=== PATIENT | female | born 1960 | race Caucasian/White ===

== ENCOUNTER 2018-04-05 11:56 | Emergency (ER) | payer MEDICAID ==
[~2018-04-05] VITALS: Ht 172.7 cm; Wt 124.5 kg
[~2018-04-05 11:56] MED LIST: ALBU8HFA PO; ASPI325T68 PO; BECL8.7A3; CLOP75TA33 PO; DIPH-423 PO; EPIN0.3A3 IM; HYDR12.5 PO; LEVA15HF4 INH; LISI10TA4 PO; LORA10TA7 PO; LORA1TAB PO; METH4TAB3 PO; OMEP20TA23 PO; PRED2.5T4 PO
[2018-04-05 12:35] LABS: BASOPHILS % (AUTO) 0.3 % (0-1); EOSINOPHILS # (AUTO) 0.3 X10'3 (0-0.9); LYMPHOCYTES % (AUTO) 27.5 % (21-51); MEAN CORPUSCULAR HEMOGLOBIN 28.8 PG (27.0-31.0); MEAN CORPUSCULAR HGB CONC 33.3 % (33.0-36.5); MEAN CORPUSCULAR VOLUME 86.4 FL (78-98); MEAN PLATELET VOLUME 8.8 FL (7.4-10.4); MONOCYTES # (AUTO) 0.5 X10'3 (0-0.9); MONOCYTES % (AUTO) 7.2 % (2-12); NEUTROPHILS # (AUTO) 4.5 X10'3 (1.8-7.7); PLATELET COUNT 200 X10'3 (140-440); RED BLOOD COUNT 4.86 X10'6 (4.20-5.60); RED CELL DISTRIBUTION WIDTH 14.8 % (11.5-14.5); WHITE BLOOD COUNT 7.3 X10'3 (4.5-11.0)
[2018-04-05] MEDS ORDERED: nitroGLYCERIN 0.4mg SUBLingual tab SL PRN (12:40)
[2018-04-05] MEDS ORDERED: metoprolol tartrate 1mg/ml inj IV ONE (12:40)
[2018-04-05] MEDS ORDERED: aspirin 81mg tab.chew PO ONE (12:45)
[2018-04-05] MEDS ORDERED: ALBU8.5H8 IH (12:50)
[2018-04-05 12:52] LABS: ALANINE AMINOTRANSFERASE 44 U/L (12-78); ALBUMIN 3.6 G/DL (3.4-5.0); ALBUMIN/GLOBULIN RATIO 0.9 (1.1-1.5); ALKALINE PHOSPHATASE 105 IU/L (46-116); ANION GAP 10 (8-16); ASPARTATE AMINO TRANSFERASE 29 U/L (10-37); BILIRUBIN,TOTAL 0.2 MG/DL (0.1-1.0); BLOOD UREA NITROGEN 16 MG/DL (7-18); BUN/CREATININE RATIO 15.8 (6.6-38.0); CALCIUM 9.2 MG/DL (8.5-10.1); CHLORIDE 105 MMOL/L (99-107); CREATININE 1.01 MG/DL (0.40-0.90); GLUCOSE 112 MG/DL (70-104); POTASSIUM 3.8 MMOL/L (3.5-5.1); SODIUM 143 MMOL/L (135-145); TOTAL CARBON DIOXIDE 27.8 MMOL/L (24-32); TOTAL PROTEIN 7.7 G/DL (6.4-8.2); eGFR 57 ML/MIN
[2018-04-05] MEDS ORDERED: CETI10TA15 PO (12:52)
[2018-04-05] MEDS ORDERED: ASPI-778 PO (12:54)
[2018-04-05 12:58] LABS: PARTIAL THROMBOPLASTIN TIME 27 SECONDS (22-32); PROTHROMBIN TIME 9.7 SECONDS (9.0-12.0)
[2018-04-05] MEDS ORDERED: NITR0.4T51 SL (14:29)
[2018-04-05] MEDS ORDERED: CLIN150C2 PO (14:29)
[2018-04-05 15:14] VITALS: BP 169/88
== END 2018-04-05 15:15 | disposition home or self-care (01) ==
LOC: ER 11:56
DX: I20.8 Other forms of angina pectoris (principal); I10 Essential (primary) hypertension; K08.89 Other specified disorders of teeth and supporting structures; I25.2 Old myocardial infarction; J44.9 Chronic obstructive pulmonary disease, unspecified; E11.9 Type 2 diabetes mellitus without complications; F12.90 Cannabis use, unspecified, uncomplicated; F15.90 Other stimulant use, unspecified, uncomplicated; Z95.5 Presence of coronary angioplasty implant and graft; Z98.890 Other specified postprocedural states; Z79.899 Other long term (current) drug therapy; Z79.82 Long term (current) use of aspirin; Z88.5 Allergy status to narcotic agent; Z88.1 Allergy status to other antibiotic agents; Z88.0 Allergy status to penicillin; Z91.010 Allergy to peanuts
CPT/HCPCS: 36415; 71045; 80053; 83880; 84484; 85025; 85610; 85730; 93005; 96374; 99284; J3490

== ENCOUNTER 2018-05-08 12:46 | Emergency (ER) | payer MEDICAID ==
[~2018-05-08] VITALS: Ht 172.7 cm; Wt 123.0 kg
[~2018-05-08 12:46] MED LIST changes: +ALBU8.5H8 IH; -ALBU8HFA PO; +ASPI-778 PO; -ASPI325T68 PO; -BECL8.7A3; +CETI10TA15 PO; -CLOP75TA33 PO; -DIPH-423 PO; -EPIN0.3A3 IM; -HYDR12.5 PO; -LEVA15HF4 INH; -LISI10TA4 PO; -LORA1TAB PO; -METH4TAB3 PO; -OMEP20TA23 PO; -PRED2.5T4 PO
[2018-05-08 12:49] VITALS: BP 164/118
[2018-05-08] MEDS ORDERED: PANT-47 PO (14:47)
[2018-05-08] MEDS ORDERED: SUCR1TAB34 PO (14:47)
== END 2018-05-08 15:11 | disposition home or self-care (01) ==
LOC: ER 12:46
DX: K20.9 Esophagitis, unspecified (principal); I10 Essential (primary) hypertension; I25.2 Old myocardial infarction; J44.9 Chronic obstructive pulmonary disease, unspecified; E11.9 Type 2 diabetes mellitus without complications; F12.90 Cannabis use, unspecified, uncomplicated; F15.90 Other stimulant use, unspecified, uncomplicated; Z95.1 Presence of aortocoronary bypass graft; Z88.0 Allergy status to penicillin; Z88.8 Allergy status to other drugs, medicaments and biological substances; Z88.6 Allergy status to analgesic agent; Z88.1 Allergy status to other antibiotic agents; Z91.010 Allergy to peanuts
CPT/HCPCS: 71045; 93005; 99283

== ENCOUNTER 2018-06-27 03:19 | Emergency (ER) | payer MEDICAID ==
[~2018-06-27] VITALS: Ht 167.6 cm; Wt 100.0 kg
[~2018-06-27 03:19] MED LIST changes: +PANT-47 PO; +SUCR1TAB34 PO
[2018-06-27 03:21] VITALS: BP 162/98
[2018-06-27] MEDS ORDERED: proparacaine 0.5% ophthalmic drops 15ml EACHEYE ONE (03:25)
[2018-06-27] MEDS ORDERED: traMADol 50MG tablet PO ONE (03:35)
[2018-06-27] MEDS ORDERED: TRAM50TA2 PO (03:37)
[2018-06-27] MEDS ORDERED: VIG0.5OS LEFTEYE (03:37)
== END 2018-06-27 03:43 | disposition home or self-care (01) ==
LOC: ER 03:20
DX: S05.02XA Injury of conjunctiva and corneal abrasion without foreign body, left eye, initial encounter (principal); I10 Essential (primary) hypertension; I25.2 Old myocardial infarction; J44.9 Chronic obstructive pulmonary disease, unspecified; E11.9 Type 2 diabetes mellitus without complications; F12.90 Cannabis use, unspecified, uncomplicated; F15.90 Other stimulant use, unspecified, uncomplicated; Z98.61 Coronary angioplasty status; Z98.890 Other specified postprocedural states; Z88.5 Allergy status to narcotic agent; Z88.0 Allergy status to penicillin; Z88.1 Allergy status to other antibiotic agents; Z91.010 Allergy to peanuts; Z91.018 Allergy to other foods; Z79.899 Other long term (current) drug therapy; X58.XXXA Exposure to other specified factors, initial encounter; Y93.89 Activity, other specified; Y92.89 Other specified places as the place of occurrence of the external cause; Y99.8 Other external cause status
CPT/HCPCS: 99283

== ENCOUNTER 2018-10-03 01:17 | Emergency (ER) | payer MEDICAID ==
[~2018-10-03] VITALS: Ht 172.7 cm; Wt 125.0 kg
[2018-10-03] MEDS ORDERED: acetaminophen 325mg tablet PO STA (02:26)
[2018-10-03 03:33] LABS: BASOPHILS # (AUTO) 0.1 X10'3 (0-0.2); BASOPHILS % (AUTO) 0.6 % (0-1); EOSINOPHILS # (AUTO) 0.2 X10'3 (0-0.9); EOSINOPHILS % (AUTO) 1.4 % (0-6); HEMATOCRIT 40.1 % (35.0-45.0); HEMOGLOBIN 13.4 g/dl (12.0-16.0); LYMPHOCYTES # (AUTO) 2.1 X10'3 (1.1-4.8); LYMPHOCYTES % (AUTO) 16.2 % (21-51); MEAN CORPUSCULAR HGB CONC 33.5 g/dL (33.0-36.5); MEAN CORPUSCULAR VOLUME 86.5 FL (78-98); MEAN PLATELET VOLUME 8.8 FL (7.4-10.4); MONOCYTES # (AUTO) 0.9 X10'3 (0-0.9); MONOCYTES % (AUTO) 6.7 % (2-12); NEUTROPHILS # (AUTO) 9.9 X10'3 (1.8-7.7); NEUTROPHILS % (AUTO) 75.1 % (42-75); PLATELET COUNT 192 X10'3 (140-440); RED BLOOD COUNT 4.63 X10'6 (4.20-5.60); RED CELL DISTRIBUTION WIDTH 14.8 % (11.5-14.5); WHITE BLOOD COUNT 13.2 X10'3 (4.5-11.0)
[2018-10-03 03:42] LABS: ALANINE AMINOTRANSFERASE 37 U/L (12-78); ALBUMIN 3.4 G/DL (3.4-5.0); ALBUMIN/GLOBULIN RATIO 0.8 (1.1-1.5); ALKALINE PHOSPHATASE 109 IU/L (46-116); ANION GAP 11 (8-16); ASPARTATE AMINO TRANSFERASE 23 U/L (10-37); BILIRUBIN,TOTAL 0.5 MG/DL (0.1-1.0); BLOOD UREA NITROGEN 18 MG/DL (7-18); BUN/CREATININE RATIO 19.8 (6.6-38.0); CALCIUM 8.5 MG/DL (8.5-10.1); CHLORIDE 101 MMOL/L (99-107); CREATININE 0.91 MG/DL (0.40-0.90); GLUCOSE 125 MG/DL (70-104); PARTIAL THROMBOPLASTIN TIME 29 SECONDS (22-32); SODIUM 134 MMOL/L (135-145); TOTAL CARBON DIOXIDE 22.4 MMOL/L (24-32); TOTAL PROTEIN 7.7 G/DL (6.4-8.2); eGFR 64 ML/MIN
[2018-10-03] MEDS ORDERED: normal saline 1000ML IV soln IVB ONE ×2 (03:55)
[2018-10-03] MEDS ORDERED: azithromycin/NS 500mg/250ml 250 ML IV ONE (06:10)
[2018-10-03] MEDS ORDERED: CefTRIAXone/D5W-Rocephin 1gm 50 ML IV ONE (06:10)
[2018-10-03 06:16] LABS: CLARITY,URINE SLIGHTLY CLOUDY (Clear); COLOR,URINE YELLOW (Yellow); GLUCOSE, URINE NEGATIVE (Neg); KETONES,URINE NEGATIVE (Neg); LEUKOCYTE ESTERASE ,URINE SMALL (Neg); NITRITES, URINE NEGATIVE (Neg); OCCULT BLOOD,URINE SMALL (Neg); PROTEIN,URINE NEGATIVE (Neg); UROBILINOGEN,URINE 0.2 E.U/dL (0.2-1.0)
[2018-10-03 06:18] LABS: UA COLLECTION TYPE CLN CATCH MIDSTREAM
[2018-10-03 06:24] LABS: MUCUS STRANDS FEW /LPF (Neg); SQUAMOUS EPITHELIAL CELL,UR MODERATE /LPF (FEW); TRANSITIONAL EPI CELLS,URINE MODERATE /HPF
[2018-10-03 06:28] LABS: BACTERIA,URINE FEW /HPF (Neg)
[2018-10-03 06:29] LABS: RBC,URINE 0-2 /HPF (0-2); RENAL CELLS, URINE FEW /HPF; URINE AMPHETAMINE SCREEN POSITIVE (Neg); URINE BARBITUATE SCREEN NEGATIVE (Neg); URINE BENZODIAZEPINES SCREEN NEGATIVE (Neg); URINE CANNABINOID SCREEN NEGATIVE (Neg); URINE COCAINE SCREEN NEGATIVE (Neg); URINE METHADONE SCREEN NEGATIVE (Neg); URINE OPIATE SCREEN NEGATIVE (Neg); URINE PHENCYCLIDINE SCREEN NEGATIVE (Neg); WBC CLUMPS,URINE FEW /HPF (NEGATIVE)
[2018-10-03] MEDS ORDERED: AZIT-72 PO (08:17)
[2018-10-03 08:35] VITALS: BP 180/75
== END 2018-10-03 08:37 | disposition home or self-care (01) ==
LOC: ER 01:18
DX: J02.0 Streptococcal pharyngitis (principal); B95.0 Streptococcus, group A, as the cause of diseases classified elsewhere; R19.7 Diarrhea, unspecified; R07.89 Other chest pain; I10 Essential (primary) hypertension; I25.2 Old myocardial infarction; J44.9 Chronic obstructive pulmonary disease, unspecified; E11.9 Type 2 diabetes mellitus without complications; K00.7 Teething syndrome; F12.90 Cannabis use, unspecified, uncomplicated; F15.90 Other stimulant use, unspecified, uncomplicated; Z98.61 Coronary angioplasty status; Z98.890 Other specified postprocedural states; Z86.73 Personal history of transient ischemic attack (TIA), and cerebral infarction without residual deficits; Z88.5 Allergy status to narcotic agent; Z88.1 Allergy status to other antibiotic agents; Z88.0 Allergy status to penicillin; Z91.010 Allergy to peanuts; Z91.018 Allergy to other foods; Z79.82 Long term (current) use of aspirin; Z79.899 Other long term (current) drug therapy
CPT/HCPCS: 36415; 71045; 80053; 80305; 81001; 83605; 84145; 84484; 85025; 85610; 85730; 87040; 87088; 87880; 93005; 96361; 96365; 96367; 99284; J0456; J0696; J7030

== ENCOUNTER 2019-01-15 01:06 | Emergency (ER) | payer MEDICAID ==
[~2019-01-15] VITALS: Ht 172.7 cm; Wt 104.0 kg
[2019-01-15] MEDS ORDERED: lisinopril 10 MG tablet PO ONE (02:35)
[2019-01-15] MEDS ORDERED: ondansetron 4mg rapidly disintigrating tab PO ONE (02:45)
[2019-01-15] MEDS ORDERED: LIDOcaine 1% w/EPI 1:200,000 injection 10mL vial IM ONE (03:45)
[2019-01-15] MEDS ORDERED: hyDRALAzine 10mg tablet PO SCH ×2 (03:55→04:15)
[2019-01-15] MEDS ORDERED: LIDOcaine 1% W/epiNEPHrine 1:100,000 20ml vial IJ ONE (03:55)
[2019-01-15] MEDS ORDERED: hyDRALAzine 10mg tablet PO ONE (04:15)
[2019-01-15 04:33] VITALS: BP 208/84
== END 2019-01-15 04:36 | disposition home or self-care (01) ==
LOC: ER 01:06
DX: R04.0 Epistaxis (principal); I10 Essential (primary) hypertension; I25.2 Old myocardial infarction; J44.9 Chronic obstructive pulmonary disease, unspecified; E11.9 Type 2 diabetes mellitus without complications; F12.90 Cannabis use, unspecified, uncomplicated; F15.90 Other stimulant use, unspecified, uncomplicated; Z86.73 Personal history of transient ischemic attack (TIA), and cerebral infarction without residual deficits; Z95.818 Presence of other cardiac implants and grafts; Z98.890 Other specified postprocedural states; Z88.5 Allergy status to narcotic agent; Z88.1 Allergy status to other antibiotic agents; Z88.0 Allergy status to penicillin; Z91.018 Allergy to other foods; Z79.899 Other long term (current) drug therapy
CPT/HCPCS: 96374; 99284

== ENCOUNTER 2019-03-14 14:19 | Inpatient (IN) | payer MEDICAID ==
[~2019-03-14] VITALS: Ht 172.7 cm; Wt 118.0 kg
[2019-03-14] MEDS ORDERED: normal saline 1000ML IV soln IV ONE (14:45)
[2019-03-14] MEDS ORDERED: ketorolac trometh. 30mg/ml inj. IV ONE (14:45)
[2019-03-14] MEDS ORDERED: acetaminophen 325mg tablet PO ONE (15:05)
[2019-03-14] MEDS ORDERED: diphenhydrAMINE 50 mg/ml inj IV ONE ×2 (15:10→16:40)
[2019-03-14] MEDS ORDERED: metoclopramide 5 mg/ml inj IV ONE (15:10)
[2019-03-14] MEDS ORDERED: ipratropium/albuterol 3ml nebule NEB ONE (15:30)
[2019-03-14] MEDS ORDERED: furosemide 10 MG/1 ML 10ml inj IV ONE (15:30)
[2019-03-14 15:37] LABS: BASOPHILS % (AUTO) 0.4 % (0-1); EOSINOPHILS # (AUTO) 0.1 X10'3 (0-0.9); EOSINOPHILS % (AUTO) 0.7 % (0-6); HEMATOCRIT 41.4 % (35.0-45.0); LYMPHOCYTES # (AUTO) 0.3 X10'3 (1.1-4.8); LYMPHOCYTES % (AUTO) 4.3 % (21-51); MEAN CORPUSCULAR HEMOGLOBIN 29.3 PG (27.0-31.0); MEAN CORPUSCULAR HGB CONC 33.9 g/dL (33.0-36.5); MEAN CORPUSCULAR VOLUME 86.3 FL (78-98); MEAN PLATELET VOLUME 8.7 FL (7.4-10.4); MONOCYTES # (AUTO) 0.8 X10'3 (0-0.9); MONOCYTES % (AUTO) 9.9 % (2-12); NEUTROPHILS # (AUTO) 6.5 X10'3 (1.8-7.7); NEUTROPHILS % (AUTO) 84.7 % (42-75); PLATELET COUNT 189 X10'3 (140-440); RED CELL DISTRIBUTION WIDTH 14.6 % (11.5-14.5); WHITE BLOOD COUNT 7.7 X10'3 (4.5-11.0)
[2019-03-14] MEDS ORDERED: oseltamivir phos 75mg capsule PO ONE (15:50)
[2019-03-14 15:53] LABS: ALANINE AMINOTRANSFERASE 65 U/L (12-78); ALBUMIN 3.7 G/DL (3.4-5.0); ALBUMIN/GLOBULIN RATIO 0.8 (1.1-1.5); ALKALINE PHOSPHATASE 106 IU/L (46-116); ANION GAP 10 (8-16); ASPARTATE AMINO TRANSFERASE 80 U/L (10-37); BILIRUBIN,TOTAL 0.4 MG/DL (0.1-1.0); BLOOD UREA NITROGEN 12 MG/DL (7-18); BUN/CREATININE RATIO 13.5 (6.6-38.0); CALCIUM 8.7 MG/DL (8.5-10.1); CHLORIDE 102 MMOL/L (99-107); CREATININE 0.89 MG/DL (0.40-0.90); GLUCOSE 131 MG/DL (70-104); MAGNESIUM 1.8 MG/DL (1.5-2.4); SODIUM 138 MMOL/L (135-145); TOTAL CARBON DIOXIDE 26.3 MMOL/L (24-32); TOTAL PROTEIN 8.6 G/DL (6.4-8.2); eGFR 66 ML/MIN
[2019-03-14] MEDS ORDERED: dexamethasone sod phosphate 10mg/ml inj IV STA (16:27)
--- NOTE | 2019-03-14 16:54 | NUR ---
PT C/O ALL OVER ITCHING AFTER DECADRON WAS GIVEN, NOTIFIED, BENADRYL ORDERED. PT STATED ITCHING WAS GONE WHEN BENADRYL WAS AVAILABLE, REFUSED BENADRYL, STATED SHE DIDN'T NEED IT.
[2019-03-14] MEDS ORDERED: LISI10TA4 PO (16:56)
[2019-03-14] MEDS ORDERED: BECL10.6 PO (16:56)
[2019-03-14] MEDS ORDERED: ASPI-845 PO (16:56)
[2019-03-14] MEDS ORDERED: acetaminophen 325mg tablet PO PRN (17:30)
[2019-03-14] MEDS ORDERED: potassium Cl 20 mEq SR tablet PO PRN ×2 (17:30)
[2019-03-14] MEDS ORDERED: magnesium 2GM in 50ml NS 50 ML IV PRN (17:30)
[2019-03-14] MEDS ORDERED: ondansetron/PF 4mg/2ml inj IV PRN (17:30)
[2019-03-14] MEDS ORDERED: magnesium Cl slow-release 64mg tablet PO PRN (17:30)
[2019-03-14] MEDS ORDERED: magnesium 4gm in 100ml NS 100 ML IV PRN (17:30)
[2019-03-14] MEDS ORDERED: potassium CL 10mEq/100ml bag 100 ML IV PRN ×2 (17:30)
[2019-03-14 18:18] LABS: CLARITY,URINE CLOUDY (Clear); GLUCOSE, URINE NEGATIVE (Neg); KETONES,URINE NEGATIVE (Neg); LEUKOCYTE ESTERASE ,URINE NEGATIVE (Neg); NITRITES, URINE NEGATIVE (Neg); OCCULT BLOOD,URINE SMALL (Neg); PROTEIN,URINE TRACE mg/dl (Neg); UROBILINOGEN,URINE 0.2 E.U/dL (0.2-1.0)
[2019-03-14 18:19] LABS: COLOR,URINE DARK YELLOW (Yellow); UA COLLECTION TYPE CLN CATCH MIDSTREAM
[2019-03-14 18:34] LABS: MUCUS STRANDS MANY /LPF (Neg); SQUAMOUS EPITHELIAL CELL,UR MANY /LPF (FEW); TRANSITIONAL EPI CELLS,URINE MANY /HPF
[2019-03-14 18:38] LABS: BACTERIA,URINE FEW /HPF (Neg); RBC,URINE 0-2 /HPF (0-2); WBC,URINE 0-4 /HPF (0-4)
--- NOTE | 2019-03-14 18:55 | NUR ---
Er brought pt up to floor on [facility] while staff setting up room for pt.
--- NOTE | 2019-03-14 19:05 | NUR ---
pt transferred from [facility] into bed. vitals done nares swabbed and pt skin care done for inc of urine.
[2019-03-14 19:15] VITALS: BP 148/88
[2019-03-14] MEDS: K and/or MAG REPLACEMENT MC SCH (20:00)
--- NOTE | 2019-03-14 20:00 | NUR ---
tray food ordered and given to pt stated she was hungry and had not eaten. made sure it was lower carbs.
[2019-03-14] MEDS ORDERED: temazepam 15mg capsule PO PRN (21:00)
[2019-03-14] MEDS: lisinopril 10 MG tablet PO SCH (21:15)
[2019-03-14] MEDS: normal saline 1000ml 1,000 ML IV SCH (21:18)
[2019-03-14] MEDS ORDERED: dextrose 50%-water 50ml dispensing syringe IV PRN ×2 (21:50)
[2019-03-14] MEDS ORDERED: MESSAGE TO PHARMACY PO ONE (21:50)
[2019-03-14] MEDS ORDERED: glucagon, human recombinant 1mg kit SUBCUT PRN (21:50)
[2019-03-14] MEDS ORDERED: dextrose ORAL solution 15 GM/59 ML bottle PO PRN ×2 (21:50)
--- NOTE | 2019-03-14 21:50 | NUR ---
PT'S BLOOD SUGAR 305 PT STATES SHE HAS NEVER HAD INSULIN AND IS DIET CONTROLLED. MD AWARE OF BLOOD SUGARS OF 131 & 152 IN THE ER PRIOR TO OBTAINING THIS ONE.
[2019-03-14 22:26] LABS: HEMOGLOBIN A1C 6.8 % (4.5-6.2)
[2019-03-14] MEDS: insulin Lispro (HumaLOG) vial - multi-dose SQ SCH (22:31)
--- NOTE | 2019-03-14 22:40 | NUR ---
pt medicated for blood sugar now of 271 via accucheck. received 12 of lantus and 1 unit of regular per ordered protocol.
[2019-03-15] VITALS: BP 126/62
--- NOTE | 2019-03-15 02:20 | NUR ---
resting without s&s of distress on her side.
[2019-03-15] MEDS: normal saline 1000ml 1,000 ML IV SCH ×2 (03:29→13:29)
--- NOTE | 2019-03-15 04:00 | NUR ---
blood sugar checked bs 200. pt states she is feeling better.teaching done regarding her diabetes. whatv her a1c meant etc.
--- NOTE | 2019-03-15 05:26 | NUR ---
resting on her side without s&S of distress.
--- NOTE | 2019-03-15 06:15 | NUR ---
Problems reprioritized. Patient report given, questions answered & plan of care reviewed with ALYSSIA DOYLE'S. Addendum: 03/15/19 at 0616 by Janell Guajardo RN Amended: Links added.
[2019-03-15 07:00] VITALS: BP 142/67
[2019-03-15] MEDS: K and/or MAG REPLACEMENT MC SCH (08:00)
[2019-03-15] MEDS ORDERED: oseltamivir phos 75mg capsule PO SCH (08:00)
[2019-03-15] MEDS: lisinopril 10 MG tablet PO SCH (08:22)
[2019-03-15] MEDS: insulin Lispro (HumaLOG) vial - multi-dose SQ SCH ×2 (09:27→13:57)
[2019-03-15 11:00] VITALS: BP 128/69
[2019-03-15] MEDS ORDERED: TAM75C PO (11:27)
[2019-03-15 12:31] LABS: ALBUMIN 3.1 G/DL (3.4-5.0); ANION GAP 10 (8-16); BLOOD UREA NITROGEN 18 MG/DL (7-18); CALCIUM 8.5 MG/DL (8.5-10.1); CHLORIDE 107 MMOL/L (99-107); GLUCOSE 170 MG/DL (70-104); MAGNESIUM 1.9 MG/DL (1.5-2.4); POTASSIUM 4.1 MMOL/L (3.5-5.1); SODIUM 140 MMOL/L (135-145); eGFR 65 ML/MIN
[2019-03-15 13:21] LABS: BASOPHILS % (AUTO) 0.6 % (0-1); MEAN CORPUSCULAR HEMOGLOBIN 29.1 PG (27.0-31.0); MEAN CORPUSCULAR HGB CONC 33.3 g/dL (33.0-36.5); MEAN PLATELET VOLUME 9.1 FL (7.4-10.4)
[2019-03-15 13:22] LABS: EOSINOPHILS % (AUTO) 0.1 % (0-6); HEMATOCRIT 41.4 % (35.0-45.0); HEMOGLOBIN 13.8 g/dl (12.0-16.0); LYMPHOCYTES # (AUTO) 0.7 X10'3 (1.1-4.8); LYMPHOCYTES % (AUTO) 11.7 % (21-51); MEAN CORPUSCULAR VOLUME 87.5 FL (78-98); MONOCYTES # (AUTO) 0.8 X10'3 (0-0.9); MONOCYTES % (AUTO) 13.9 % (2-12); NEUTROPHILS # (AUTO) 4.4 X10'3 (1.8-7.7); NEUTROPHILS % (AUTO) 73.7 % (42-75); RED BLOOD COUNT 4.73 X10'6 (4.20-5.60)
[2019-03-15 13:54] LABS: PLATELET COUNT 165 X10'3 (140-440)
[2019-03-15 13:55] LABS: GIANT PLATELET FEW; PLATELET ESTIMATE NORMAL
--- NOTE | 2019-03-15 15:52 | NUR ---
Patient is alert, oriented, and appropriate for discharge. Patient verbalized understanding of all discharge instructions and symptom worsening. Patient IV and Tele removed. Patient has all belongings and left escorted by employee into personal vehicle. Addendum: 03/15/19 at 1555 by Adeola Sexton RN Amended: Links added.
--- NOTE | 2019-03-15 16:14 | NUR ---
DM consult: Patient with hx T2DM with A1c 6.8 not warranting DM education however per consult pt requesting to speak with RD. Pt was discharged prior to RD being available for bedside visit. Addendum: 03/15/19 at [address] Amended: Links added.
[2019-03-15] MEDS ORDERED: insulin glargine (Lantus) pen - multi-dose SQ SCH (21:00)
[2019-03-16] MEDS ORDERED: FLU VACC QS2019-20 36MOS UP/PF 60 MCG/0.5 ML SYRINGE IMVAC ONE (10:00)
[2019-03-16] MEDS ORDERED: pneumococcal 23-VAL P-sac vacc 25 mcg/0.5ml vial IMVAC ONE (10:00)
== END 2019-03-15 15:47 | disposition home or self-care (01) | DRG 113 ==
LOC: ER 14:19 → ED HOLD 18:14 → EDBEDREQ 18:35 → SUR 3N 19:03
PROVIDERS: ADMIT Internal Medicine; ATTEND Internal Medicine
DX: J10.1 Influenza due to other identified influenza virus with other respiratory manifestations (principal); E66.01 Morbid (severe) obesity due to excess calories; E11.9 Type 2 diabetes mellitus without complications; G89.29 Other chronic pain; F12.90 Cannabis use, unspecified, uncomplicated; I10 Essential (primary) hypertension; Z60.2 Problems related to living alone; M54.5 Low back pain; J44.1 Chronic obstructive pulmonary disease with (acute) exacerbation; Z68.39 Body mass index [BMI] 39.0-39.9, adult; I25.2 Old myocardial infarction; Z86.73 Personal history of transient ischemic attack (TIA), and cerebral infarction without residual deficits; Z88.5 Allergy status to narcotic agent; Z91.010 Allergy to peanuts; Z88.0 Allergy status to penicillin; Z88.8 Allergy status to other drugs, medicaments and biological substances; Z91.018 Allergy to other foods; Z98.61 Coronary angioplasty status
CPT/HCPCS: 36415; 71045; 80048; 80053; 81001; 82948; 83036; 83605; 83735; 84145; 85025; 85610; 87040; 87081; 87502; 87503; 94640; 96374; 96375; 99285; G0378; J1100; J1200; J1815; J1885; J1940; J2765; J7030

== ENCOUNTER 2019-03-27 21:44 | Emergency (ER) | payer MEDICAID ==
[~2019-03-27] VITALS: Ht 172.7 cm; Wt 119.0 kg
[~2019-03-27 21:44] MED LIST changes: -ASPI-778 PO; +ASPI-845 PO; +BECL10.6 PO; -CETI10TA15 PO; +LISI10TA4 PO; -LORA10TA7 PO; -PANT-47 PO; -SUCR1TAB34 PO; +TAM75C PO
--- NOTE | 2019-03-27 22:11 | NUR ---
PT CONCERNED POSSIBLE BLOOD CLOT IN RIGHT LEG. SHE HAS HAD 2 IN LEFT LEG AND SAYS THATS WHAT IT FEELS LIKE
[2019-03-27] MEDS ORDERED: ipratropium/albuterol 3ml nebule NEB ONE (23:15)
[2019-03-27] MEDS ORDERED: predniSONE 20 mg tablet PO ONE (23:15)
[2019-03-27 23:46] LABS: BASOPHILS # (AUTO) 0.1 X10'3 (0-0.2); BASOPHILS % (AUTO) 1.5 % (0-1); EOSINOPHILS # (AUTO) 0.2 X10'3 (0-0.9); HEMATOCRIT 36.8 % (35.0-45.0); HEMOGLOBIN 12.3 g/dl (12.0-16.0); LYMPHOCYTES # (AUTO) 2.7 X10'3 (1.1-4.8); LYMPHOCYTES % (AUTO) 30.4 % (21-51); MEAN CORPUSCULAR HEMOGLOBIN 28.8 PG (27.0-31.0); MEAN CORPUSCULAR HGB CONC 33.4 g/dL (33.0-36.5); MEAN CORPUSCULAR VOLUME 86.4 FL (78-98); MEAN PLATELET VOLUME 8.9 FL (7.4-10.4); MONOCYTES # (AUTO) 0.8 X10'3 (0-0.9); NEUTROPHILS % (AUTO) 57.1 % (42-75); PLATELET COUNT 211 X10'3 (140-440); RED BLOOD COUNT 4.26 X10'6 (4.20-5.60); RED CELL DISTRIBUTION WIDTH 14.8 % (11.5-14.5); WHITE BLOOD COUNT 8.8 X10'3 (4.5-11.0)
[2019-03-27 23:53] LABS: ALANINE AMINOTRANSFERASE 52 U/L (12-78); ALBUMIN 3.5 G/DL (3.4-5.0); ALBUMIN/GLOBULIN RATIO 0.9 (1.1-1.5); ALKALINE PHOSPHATASE 95 IU/L (46-116); ANION GAP 10 (8-16); ASPARTATE AMINO TRANSFERASE 47 U/L (10-37); BILIRUBIN,TOTAL 0.3 MG/DL (0.1-1.0); BLOOD UREA NITROGEN 15 MG/DL (7-18); BUN/CREATININE RATIO 14.9 (6.6-38.0); CALCIUM 8.7 MG/DL (8.5-10.1); CHLORIDE 109 MMOL/L (99-107); CREATININE 1.01 MG/DL (0.40-0.90); GLUCOSE 97 MG/DL (70-104); POTASSIUM 3.7 MMOL/L (3.5-5.1); SODIUM 144 MMOL/L (135-145); TOTAL CARBON DIOXIDE 24.9 MMOL/L (24-32); TOTAL PROTEIN 7.3 G/DL (6.4-8.2); eGFR 57 ML/MIN
[2019-03-28] MEDS ORDERED: acetaminophen 325mg tablet PO ONE
[2019-03-28] MEDS ORDERED: LEVO750T21 PO (00:18)
[2019-03-28] MEDS ORDERED: PRED20TA PO (00:18)
[2019-03-28] MEDS ORDERED: levoFLOXACIN 750MG TABLET PO ONE (00:30)
[2019-03-28 00:35] VITALS: BP 153/77
== END 2019-03-28 00:36 | disposition home or self-care (01) ==
LOC: ER 21:45
DX: J44.1 Chronic obstructive pulmonary disease with (acute) exacerbation (principal); I10 Essential (primary) hypertension; I25.2 Old myocardial infarction; E11.9 Type 2 diabetes mellitus without complications; F12.90 Cannabis use, unspecified, uncomplicated; F15.90 Other stimulant use, unspecified, uncomplicated; Z95.5 Presence of coronary angioplasty implant and graft; Z98.890 Other specified postprocedural states; Z86.73 Personal history of transient ischemic attack (TIA), and cerebral infarction without residual deficits; Z79.82 Long term (current) use of aspirin; Z79.899 Other long term (current) drug therapy; Z79.2 Long term (current) use of antibiotics; Z88.5 Allergy status to narcotic agent; Z88.1 Allergy status to other antibiotic agents; Z88.8 Allergy status to other drugs, medicaments and biological substances; Z91.010 Allergy to peanuts
CPT/HCPCS: 36415; 71045; 80053; 85025; 93005; 94640; 99284; J7512; 94760

== ENCOUNTER 2019-08-11 11:51 | Inpatient (IN) | payer MEDICAID ==
[~2019-08-11] VITALS: Ht 172.7 cm; Wt 114.1 kg
[2019-08-11 13:02] LABS: ALANINE AMINOTRANSFERASE 42 U/L (12-78); ALBUMIN 3.6 G/DL (3.4-5.0); ALBUMIN/GLOBULIN RATIO 0.8 (1.1-1.5); ALKALINE PHOSPHATASE 97 IU/L (46-116); ANION GAP 11 (8-16); ASPARTATE AMINO TRANSFERASE 38 U/L (10-37); BILIRUBIN,TOTAL 0.5 MG/DL (0.1-1.0); BLOOD UREA NITROGEN 18 MG/DL (7-18); CALCIUM 9.8 MG/DL (8.5-10.1); CHLORIDE 105 MMOL/L (99-107); GLUCOSE 152 MG/DL (70-104); POTASSIUM 4.3 MMOL/L (3.5-5.1); SODIUM 143 MMOL/L (135-145); TOTAL CARBON DIOXIDE 27.1 MMOL/L (24-32); TOTAL PROTEIN 7.9 G/DL (6.4-8.2); eGFR 57 ML/MIN
[2019-08-11 13:18] LABS: BASOPHILS # (AUTO) 0.1 X10'3 (0-0.2); BASOPHILS % (AUTO) 0.7 % (0-1); EOSINOPHILS # (AUTO) 0.2 X10'3 (0-0.9); EOSINOPHILS % (AUTO) 2.1 % (0-6); HEMATOCRIT 45.1 % (35.0-45.0); LYMPHOCYTES # (AUTO) 2.3 X10'3 (1.1-4.8); LYMPHOCYTES % (AUTO) 27.8 % (21-51); MEAN CORPUSCULAR HEMOGLOBIN 28.9 PG (27.0-31.0); MEAN CORPUSCULAR HGB CONC 33.2 g/dL (33.0-36.5); MEAN CORPUSCULAR VOLUME 87.1 FL (78-98); MONOCYTES # (AUTO) 0.6 X10'3 (0-0.9); MONOCYTES % (AUTO) 7.4 % (2-12); NEUTROPHILS # (AUTO) 5.2 X10'3 (1.8-7.7); PLATELET COUNT 217 X10'3 (140-440); RED BLOOD COUNT 5.18 X10'6 (4.20-5.60); RED CELL DISTRIBUTION WIDTH 14.4 % (11.5-14.5); WHITE BLOOD COUNT 8.4 X10'3 (4.5-11.0)
[2019-08-11] MEDS ORDERED: normal saline 1000ml 1,000 ML IV ONE (13:55)
[2019-08-11] MEDS ORDERED: LOSA100T57 PO (14:43)
[2019-08-11] MEDS ORDERED: NITR0.4T51 SL (14:43)
[2019-08-11] MEDS ORDERED: HYDR12.55 PO (14:43)
[2019-08-11] MEDS ORDERED: FLUT16SP10 IH (14:43)
[2019-08-11] MEDS ORDERED: MULT-227 PO (14:43)
[2019-08-11] MEDS ORDERED: ASPI-611 PO (14:43)
[2019-08-11] MEDS ORDERED: BECL10.62 INH (14:43)
[2019-08-11] MEDS ORDERED: normal saline 1000ml 1,000 ML IV SCH (14:56)
[2019-08-11] MEDS ORDERED: acetaminophen 325mg tablet PO PRN (15:00)
[2019-08-11] MEDS ORDERED: ondansetron/PF 4mg/2ml inj IV PRN (15:00)
[2019-08-11] MEDS ORDERED: potassium Cl 20 mEq SR tablet PO PRN ×2 (15:00)
[2019-08-11] MEDS ORDERED: potassium CL 10mEq/100ml bag 100 ML IV PRN ×2 (15:00)
--- NOTE | 2019-08-11 15:58 | NUR ---
bELONGINGS: LUCILA & MY, ALARCON $2.00, CELL PHONE W/ ELDER ASSISTANT, FLIP/FLOPS, PANTS, SHIRT, UNDIES,
--- NOTE | 2019-08-11 17:16 | NUR ---
Patient in room ED 5. I have received report from Marisel DOYLE and had the opportunity to ask questions and assume patient care.
[2019-08-11 18:01] VITALS: BP 171/88
--- NOTE | 2019-08-11 18:20 | NUR ---
PAGER ID: [phone] MESSAGE: Dr. Wright do you want to order magnesium level for anat hensley she has bigeminal pvc's. potassium is okay. Evelin [id number]
--- NOTE | 2019-08-11 18:25 | NUR ---
Patient report given to Asuncion DOYLE
[2019-08-11] MEDS: K and/or MAG REPLACEMENT MC SCH (18:36)
[2019-08-11 19:54] LABS: HEMOGLOBIN A1C 6.4 % (4.5-6.2)
[2019-08-11] MEDS ORDERED: pneumococcal 23-VAL P-sac vacc 25 mcg/0.5ml vial IMVAC ONE (19:55)
[2019-08-11 22:00] VITALS: BP 145/64
[2019-08-12 06:00] VITALS: BP 146/82
--- NOTE | 2019-08-12 06:23 | NUR ---
Problems reprioritized. Patient report given, questions answered & plan of care reviewed with YANIRA Reese.
--- NOTE | 2019-08-12 06:30 | NUR ---
Problems reprioritized. Patient report given, questions answered & plan of care reviewed with Asuncion Cook RN.
[2019-08-12] MEDS: K and/or MAG REPLACEMENT MC SCH ×2 (08:00→20:00)
[2019-08-12 08:06] LABS: ALBUMIN 3.2 G/DL (3.4-5.0); ANION GAP 12 (8-16); BLOOD UREA NITROGEN 18 MG/DL (7-18); BUN/CREATININE RATIO 21.4 (6.6-38.0); CALCIUM 9.1 MG/DL (8.5-10.1); CHLORIDE 103 MMOL/L (99-107); CREATININE 0.84 MG/DL (0.40-0.90); GLUCOSE 121 MG/DL (70-104); SODIUM 137 MMOL/L (135-145); TOTAL CARBON DIOXIDE 22.1 MMOL/L (24-32); eGFR 70 ML/MIN
[2019-08-12 08:08] LABS: POTASSIUM 4.4 MMOL/L (3.5-5.1)
--- NOTE | 2019-08-12 09:12 | NUR ---
DM consult: Pt with A1c 6.4%, DM education not warranted at this time. Will continue to follow. Addendum: 08/12/19 at [address] Amended: Links added.
[2019-08-12 09:57] LABS: BASOPHILS # (AUTO) 0.1 X10'3 (0-0.2); BASOPHILS % (AUTO) 0.9 % (0-1); EOSINOPHILS # (AUTO) 0.2 X10'3 (0-0.9); EOSINOPHILS % (AUTO) 2.8 % (0-6); HEMATOCRIT 45.4 % (35.0-45.0); HEMOGLOBIN 15.1 g/dl (12.0-16.0); LYMPHOCYTES # (AUTO) 2.8 X10'3 (1.1-4.8); LYMPHOCYTES % (AUTO) 32.8 % (21-51); MEAN CORPUSCULAR HEMOGLOBIN 29.4 PG (27.0-31.0); MEAN CORPUSCULAR HGB CONC 33.3 g/dL (33.0-36.5); MEAN CORPUSCULAR VOLUME 88.3 FL (78-98); MEAN PLATELET VOLUME 9.9 FL (7.4-10.4); MONOCYTES # (AUTO) 0.6 X10'3 (0-0.9); MONOCYTES % (AUTO) 6.5 % (2-12); NEUTROPHILS # (AUTO) 4.8 X10'3 (1.8-7.7); PLATELET COUNT 170 X10'3 (140-440); RED BLOOD COUNT 5.14 X10'6 (4.20-5.60); RED CELL DISTRIBUTION WIDTH 14.2 % (11.5-14.5); WHITE BLOOD COUNT 8.5 X10'3 (4.5-11.0)
[2019-08-12 10:00] VITALS: BP 172/82
[2019-08-12] MEDS ORDERED: metoprolol tartrate 1mg/ml inj IV PRN (10:20)
[2019-08-12] MEDS ORDERED: regadenoson 0.4mg/5ml syringe IV ONE (10:20)
[2019-08-12] MEDS ORDERED: nitroGLYCERIN 0.4mg SUBLingual tab SL PRN ×2 (10:20→11:10)
[2019-08-12] MEDS ORDERED: aminophylline 250mg/10ml inj. IV PRN (10:20)
[2019-08-12] MEDS: aspirin 81mg tablet.DR PO SCH (11:33)
[2019-08-12] MEDS: losartan 50mg tablet PO SCH (11:34)
[2019-08-12 18:00] VITALS: BP 164/88
--- NOTE | 2019-08-12 18:11 | NUR ---
Problems reprioritized. Patient report given, questions answered & plan of care reviewed with Asuncion Cook RN.
[2019-08-12] MEDS ORDERED: non-formulary drug (Beclomethasone Dipropionate (Qvar Redihaler) 2 PUFFS) INH SCH (20:00)
[2019-08-12 22:00] VITALS: BP 157/66
[2019-08-13] VITALS (12 sets, daily range): BP systolic 167–217; BP diastolic 81–115
--- NOTE | 2019-08-13 06:20 | NUR ---
Patient in room ORTHO 4013. I have received report from WILLIAMS DOYLE and had the opportunity to ask questions and assume patient care.
--- NOTE | 2019-08-13 06:36 | NUR ---
Problems reprioritized. Patient report given, questions answered & plan of care reviewed with YANIRA Mckeon.
[2019-08-13 06:40] LABS: BASOPHILS % (AUTO) 0.4 % (0-1); EOSINOPHILS # (AUTO) 0.2 X10'3 (0-0.9); EOSINOPHILS % (AUTO) 2.5 % (0-6); LYMPHOCYTES # (AUTO) 2.6 X10'3 (1.1-4.8); LYMPHOCYTES % (AUTO) 35.4 % (21-51); MEAN CORPUSCULAR HEMOGLOBIN 29.8 PG (27.0-31.0); MEAN CORPUSCULAR HGB CONC 34.1 g/dL (33.0-36.5); MEAN CORPUSCULAR VOLUME 87.3 FL (78-98); MEAN PLATELET VOLUME 9.2 FL (7.4-10.4); MONOCYTES # (AUTO) 0.5 X10'3 (0-0.9); MONOCYTES % (AUTO) 6.9 % (2-12); NEUTROPHILS % (AUTO) 54.8 % (42-75); PLATELET COUNT 180 X10'3 (140-440); RED CELL DISTRIBUTION WIDTH 13.8 % (11.5-14.5); WHITE BLOOD COUNT 7.3 X10'3 (4.5-11.0)
[2019-08-13 06:52] LABS: ALBUMIN 3.2 G/DL (3.4-5.0); ANION GAP 9 (8-16); BLOOD UREA NITROGEN 18 MG/DL (7-18); BUN/CREATININE RATIO 21.7 (6.6-38.0); CALCIUM 8.8 MG/DL (8.5-10.1); CHLORIDE 104 MMOL/L (99-107); CREATININE 0.83 MG/DL (0.40-0.90); GLUCOSE 122 MG/DL (70-104); POTASSIUM 3.9 MMOL/L (3.5-5.1); SODIUM 137 MMOL/L (135-145); TOTAL CARBON DIOXIDE 24.4 MMOL/L (24-32); eGFR 71 ML/MIN
[2019-08-13] MEDS ORDERED: aspirin 81mg tablet.DR PO SCH (08:00)
[2019-08-13] MEDS: K and/or MAG REPLACEMENT MC SCH (08:00)
[2019-08-13] MEDS: losartan 50mg tablet PO SCH ×2 (08:00→11:49)
[2019-08-13] MEDS ORDERED: fluticasone nasal spray 16GM bottle NS SCH (08:00)
[2019-08-13] MEDS ORDERED: multivitamins, therapeutics tablet PO SCH (08:00)
--- NOTE | 2019-08-13 08:00 | NUR ---
[employer] CONCERNED ABOUT PERFORMING FELICIANO SCAN. WHEN TALKING WITH PATIENT SHE STATED LAST TIME SHE TRIED TO HAVE A FELICIANO HER HR DROPPED TO THE 40'S. NOTIFIED AND WANTS TO TRY TO PERFORM THE TEST.
[2019-08-13] MEDS: aspirin 81mg tablet.DR PO SCH (11:50)
--- NOTE | 2019-08-13 13:19 | NUR ---
PAGER ID: [phone] MESSAGE: TASH [phone] RE: FEDE [id number] FELICIANO NEGATIVE, DC MEDS NEED TO BE FINISHED.
[2019-08-13] MEDS ORDERED: FAMO-128 PO (14:07)
== END 2019-08-13 14:00 | disposition home or self-care (01) | DRG 198 ==
LOC: ER 11:51 → ED HOLD 15:39 → ORTHO 4S 17:40
PROVIDERS: ADMIT Internal Medicine; ATTEND Internal Medicine
PROC: 3E0234Z Introduction of Serum, Toxoid and Vaccine into Muscle, Percutaneous Approach (ICD-10-PCS; 2019-08-11)
PROC: 4A02XM4 Measurement of Cardiac Total Activity, External Approach (ICD-10-PCS; principal; 2019-08-13)
PROC: 3E073KZ Introduction of Other Diagnostic Substance into Coronary Artery, Percutaneous Approach (ICD-10-PCS; 2019-08-13)
DX: R07.89 Other chest pain (principal); I25.10 Atherosclerotic heart disease of native coronary artery without angina pectoris; E11.9 Type 2 diabetes mellitus without complications; F12.90 Cannabis use, unspecified, uncomplicated; I10 Essential (primary) hypertension; G89.29 Other chronic pain; K21.9 Gastro-esophageal reflux disease without esophagitis; M54.5 Low back pain; J44.9 Chronic obstructive pulmonary disease, unspecified; I25.2 Old myocardial infarction; Z79.51 Long term (current) use of inhaled steroids; Z79.899 Other long term (current) drug therapy; Z86.73 Personal history of transient ischemic attack (TIA), and cerebral infarction without residual deficits; Z95.5 Presence of coronary angioplasty implant and graft; Z23 Encounter for immunization; Z88.5 Allergy status to narcotic agent; Z88.0 Allergy status to penicillin; Z88.8 Allergy status to other drugs, medicaments and biological substances; Z90.49 Acquired absence of other specified parts of digestive tract
CPT/HCPCS: 36415; 71045; 78452; 80048; 80053; 82948; 83036; 83735; 84484; 85025; 87081; 90732; 93005; 93017; 93306; 99285; A9500; G0378; J2785; J7030

== ENCOUNTER 2019-09-12 18:17 | Emergency (ER) | payer MEDICAID ==
[~2019-09-12] VITALS: Ht 172.7 cm; Wt 113.2 kg
[~2019-09-12 18:17] MED LIST changes: -ALBU8.5H8 IH; +ASPI-611 PO; -ASPI-845 PO; -BECL10.6 PO; +BECL10.62 INH; +FAMO-128 PO; +FLUT16SP10 IH; +HYDR12.55 PO; -LISI10TA4 PO; +LOSA100T57 PO; +MULT-227 PO; +NITR0.4T51 SL; -TAM75C PO
[2019-09-12 18:18] VITALS: BP 159/99
[2019-09-12] MEDS ORDERED: naproxen 500mg tablet PO ONE (18:55)
[2019-09-12] MEDS ORDERED: NAPR-56 PO (18:57)
== END 2019-09-12 20:13 | disposition home or self-care (01) ==
LOC: ER 18:17
DX: M25.572 Pain in left ankle and joints of left foot (principal); I10 Essential (primary) hypertension; I25.2 Old myocardial infarction; J44.9 Chronic obstructive pulmonary disease, unspecified; E11.9 Type 2 diabetes mellitus without complications; G89.29 Other chronic pain; F12.90 Cannabis use, unspecified, uncomplicated; F15.90 Other stimulant use, unspecified, uncomplicated; Z86.73 Personal history of transient ischemic attack (TIA), and cerebral infarction without residual deficits; Z98.61 Coronary angioplasty status; Z98.890 Other specified postprocedural states; Z88.5 Allergy status to narcotic agent; Z88.1 Allergy status to other antibiotic agents; Z88.0 Allergy status to penicillin; Z91.010 Allergy to peanuts; Z79.82 Long term (current) use of aspirin; Z79.899 Other long term (current) drug therapy
CPT/HCPCS: 73610; 99283

== ENCOUNTER 2019-09-15 20:10 | Emergency (ER) | payer MEDICAID ==
[~2019-09-15] VITALS: Ht 172.7 cm; Wt 113.8 kg
[~2019-09-15 20:10] MED LIST changes: +NAPR-56 PO
[2019-09-15 20:49] LABS: BASOPHILS # (AUTO) 0.1 X10'3 (0-0.2); BASOPHILS % (AUTO) 0.8 % (0-1); EOSINOPHILS # (AUTO) 0.2 X10'3 (0-0.9); EOSINOPHILS % (AUTO) 2.7 % (0-6); HEMOGLOBIN 14.3 g/dl (12.0-16.0); LYMPHOCYTES # (AUTO) 2.6 X10'3 (1.1-4.8); LYMPHOCYTES % (AUTO) 31.2 % (21-51); MEAN CORPUSCULAR HEMOGLOBIN 29.4 PG (27.0-31.0); MEAN CORPUSCULAR HGB CONC 33.2 g/dL (33.0-36.5); MEAN CORPUSCULAR VOLUME 88.5 FL (78-98); MEAN PLATELET VOLUME 9.1 FL (7.4-10.4); MONOCYTES # (AUTO) 0.6 X10'3 (0-0.9); MONOCYTES % (AUTO) 7.3 % (2-12); NEUTROPHILS # (AUTO) 4.9 X10'3 (1.8-7.7); PLATELET COUNT 207 X10'3 (140-440); RED BLOOD COUNT 4.87 X10'6 (4.20-5.60); RED CELL DISTRIBUTION WIDTH 14.1 % (11.5-14.5); WHITE BLOOD COUNT 8.5 X10'3 (4.5-11.0)
[2019-09-15 21:03] LABS: ALANINE AMINOTRANSFERASE 44 U/L (12-78); ALBUMIN 3.7 G/DL (3.4-5.0); ALBUMIN/GLOBULIN RATIO 0.9 (1.1-1.5); ALKALINE PHOSPHATASE 102 IU/L (46-116); ANION GAP 7 (8-16); ASPARTATE AMINO TRANSFERASE 25 U/L (10-37); BILIRUBIN,TOTAL 0.3 MG/DL (0.1-1.0); BLOOD UREA NITROGEN 15 MG/DL (7-18); BUN/CREATININE RATIO 14.4 (6.6-38.0); CHLORIDE 108 MMOL/L (99-107); CREATININE 1.04 MG/DL (0.40-0.90); GLUCOSE 128 MG/DL (70-104); POTASSIUM 3.8 MMOL/L (3.5-5.1); SODIUM 143 MMOL/L (135-145); TOTAL CARBON DIOXIDE 27.7 MMOL/L (24-32); eGFR 55 ML/MIN
[2019-09-15 21:10] LABS: TROPONIN I < 0.04 NG/ML (0.0-0.05)
[2019-09-15] MEDS ORDERED: ketorolac tromethamine 15mg/ml inj. IM ONE (21:30)
[2019-09-15 22:12] LABS: D-DIMER 0.35 MG/L FEU (0-0.50)
[2019-09-15] MEDS ORDERED: DOXYCYCLINE 100MG CAPSULE PO STA (22:33)
[2019-09-15] MEDS ORDERED: BENZ-16 PO (22:37)
[2019-09-15] MEDS ORDERED: DOXY100C2 PO (22:37)
[2019-09-15 23:02] VITALS: BP 172/88
== END 2019-09-15 23:03 | disposition home or self-care (01) ==
LOC: ER 20:10
DX: R07.9 Chest pain, unspecified (principal); R05 Cough; I10 Essential (primary) hypertension; I25.2 Old myocardial infarction; J45.909 Unspecified asthma, uncomplicated; J44.9 Chronic obstructive pulmonary disease, unspecified; E11.9 Type 2 diabetes mellitus without complications; G89.29 Other chronic pain; F12.90 Cannabis use, unspecified, uncomplicated; F15.90 Other stimulant use, unspecified, uncomplicated; Z86.73 Personal history of transient ischemic attack (TIA), and cerebral infarction without residual deficits; Z98.890 Other specified postprocedural states; Z88.5 Allergy status to narcotic agent; Z88.0 Allergy status to penicillin; Z88.1 Allergy status to other antibiotic agents; Z91.018 Allergy to other foods; Z79.82 Long term (current) use of aspirin; Z79.2 Long term (current) use of antibiotics; Z79.899 Other long term (current) drug therapy
CPT/HCPCS: 36415; 71045; 80053; 83880; 84484; 85025; 85379; 93005; 93971; 96372; 99285; J1885

== ENCOUNTER 2019-10-05 17:12 | Emergency (ER) | payer MEDICAID ==
[~2019-10-05] VITALS: Ht 172.7 cm; Wt 113.6 kg
[~2019-10-05 17:12] MED LIST changes: +BENZ-16 PO
[2019-10-05 17:24] VITALS: BP 168/89
== END 2019-10-05 19:43 | disposition left against medical advice (07) ==
LOC: ER 17:13
DX: M79.605 Pain in left leg (principal); Z53.21 Procedure and treatment not carried out due to patient leaving prior to being seen by health care provider

== ENCOUNTER 2019-12-26 17:57 | Emergency (ER) | payer MEDICAID ==
[~2019-12-26] VITALS: Ht 172.7 cm; Wt 125.0 kg
[~2019-12-26 17:57] MED LIST changes: -BENZ-16 PO; -NAPR-56 PO
[2019-12-26 18:02] VITALS: BP 214/102
[2019-12-26] MEDS ORDERED: mupirocin 2% ointment 22GM TP STA (19:00)
[2019-12-26] MEDS ORDERED: SULF1TAB49 PO (19:02)
== END 2019-12-26 19:25 | disposition home or self-care (01) ==
LOC: ER 17:58
DX: L01.00 Impetigo, unspecified (principal); I10 Essential (primary) hypertension; I25.2 Old myocardial infarction; J44.9 Chronic obstructive pulmonary disease, unspecified; E11.9 Type 2 diabetes mellitus without complications; F12.90 Cannabis use, unspecified, uncomplicated; F15.90 Other stimulant use, unspecified, uncomplicated; Z86.73 Personal history of transient ischemic attack (TIA), and cerebral infarction without residual deficits; Z98.61 Coronary angioplasty status; Z98.890 Other specified postprocedural states; Z88.5 Allergy status to narcotic agent; Z88.1 Allergy status to other antibiotic agents; Z88.0 Allergy status to penicillin; Z91.018 Allergy to other foods; Z91.010 Allergy to peanuts; Z79.82 Long term (current) use of aspirin; Z79.899 Other long term (current) drug therapy
CPT/HCPCS: 99283

== ENCOUNTER 2020-02-21 08:25 | Emergency (ER) | payer MEDICAID ==
[~2020-02-21] VITALS: Ht 172.7 cm; Wt 119.5 kg
[2020-02-21 08:26] VITALS: BP 241/168
[2020-02-21] MEDS ORDERED: ondansetron 4mg rapidly disintigrating tab PO ONE (08:40)
[2020-02-21] MEDS ORDERED: oxymetazoline 15 ML nasal spray NS ONE (08:40)
[2020-02-21] MEDS ORDERED: tranexamic acid 100mg/ml inj. TP ONE (08:40)
[2020-02-21] MEDS ORDERED: LIDOcaine Viscous 15ml cup MM ONE (10:20)
[2020-02-21] MEDS ORDERED: SULF1TAB49 PO (11:05)
[2020-02-21] MEDS ORDERED: ONDA4TAB6 PO (11:05)
== END 2020-02-21 11:16 | disposition home or self-care (01) ==
LOC: ER 08:26
DX: R04.0 Epistaxis (principal); M54.89 Other dorsalgia; I10 Essential (primary) hypertension; I25.2 Old myocardial infarction; J44.9 Chronic obstructive pulmonary disease, unspecified; E11.9 Type 2 diabetes mellitus without complications; G89.29 Other chronic pain; F12.90 Cannabis use, unspecified, uncomplicated; F15.90 Other stimulant use, unspecified, uncomplicated; Z86.73 Personal history of transient ischemic attack (TIA), and cerebral infarction without residual deficits; Z98.890 Other specified postprocedural states; Z88.5 Allergy status to narcotic agent; Z88.1 Allergy status to other antibiotic agents; Z88.0 Allergy status to penicillin; Z91.010 Allergy to peanuts; Z91.018 Allergy to other foods; Z79.82 Long term (current) use of aspirin; Z79.2 Long term (current) use of antibiotics; Z79.899 Other long term (current) drug therapy
CPT/HCPCS: 30901; 99284

== ENCOUNTER 2020-02-21 12:17 | Emergency (ER) | payer MEDICAID ==
[~2020-02-21] VITALS: Ht 157.5 cm; Wt 119.0 kg
[~2020-02-21 12:17] MED LIST changes: +LIDOcaine 1% W/epiNEPHrine 1:200,000 10ml vial ONE; +ONDA4TAB6 PO; +SULF1TAB49 PO
[2020-02-21] MEDS ORDERED: tranexamic acid 100mg/ml inj. TP ONE ×2 (12:35→12:40)
[2020-02-21] MEDS ORDERED: hydrALAZINE 20mg/ml inj. IV ONE ×2 (12:35→15:45)
[2020-02-21] MEDS ORDERED: LORazepam 2 mg/ml vial IV ONE (12:35)
[2020-02-21] MEDS ORDERED: oxymetazoline 15 ML nasal spray NS ONE (12:40)
[2020-02-21] MEDS ORDERED: proCHLORperazine 10 MG/2 ml inj IV ONE (12:40)
[2020-02-21] MEDS ORDERED: tranexamic acid 1gm/0.7% sal. 100 ML IV ONE (12:50)
[2020-02-21] MEDS ORDERED: normal saline 1000ml 1,000 ML IV ONE (13:05)
[2020-02-21 14:12] LABS: BASOPHILS # (AUTO) 0.1 X10'3 (0-0.2); BASOPHILS % (AUTO) 0.8 % (0-1); EOSINOPHILS # (AUTO) 0.3 X10'3 (0-0.9); EOSINOPHILS % (AUTO) 3.1 % (0-6); HEMATOCRIT 41.2 % (35.0-45.0); HEMOGLOBIN 13.9 g/dl (12.0-16.0); LYMPHOCYTES % (AUTO) 24.7 % (21-51); MEAN CORPUSCULAR HEMOGLOBIN 29.6 PG (27.0-31.0); MEAN CORPUSCULAR HGB CONC 33.7 g/dL (33.0-36.5); MEAN CORPUSCULAR VOLUME 87.8 FL (78-98); MONOCYTES # (AUTO) 0.6 X10'3 (0-0.9); MONOCYTES % (AUTO) 7.3 % (2-12); NEUTROPHILS # (AUTO) 5.2 X10'3 (1.8-7.7); NEUTROPHILS % (AUTO) 64.1 % (42-75); PLATELET COUNT 201 X10'3 (140-440); RED BLOOD COUNT 4.69 X10'6 (4.20-5.60); RED CELL DISTRIBUTION WIDTH 13.8 % (11.5-14.5); WHITE BLOOD COUNT 8.1 X10'3 (4.5-11.0)
[2020-02-21 14:25] LABS: ALANINE AMINOTRANSFERASE 78 U/L (12-78); ALBUMIN 3.6 G/DL (3.4-5.0); ALBUMIN/GLOBULIN RATIO 0.8 (1.1-1.5); ALKALINE PHOSPHATASE 102 IU/L (46-116); ANION GAP 7 (8-16); ASPARTATE AMINO TRANSFERASE 71 U/L (10-37); BILIRUBIN,TOTAL 0.4 MG/DL (0.1-1.0); BLOOD UREA NITROGEN 24 MG/DL (7-18); BUN/CREATININE RATIO 27.6 (6.6-38.0); CALCIUM 8.9 MG/DL (8.5-10.1); CHLORIDE 107 MMOL/L (99-107); CREATININE 0.87 MG/DL (0.40-0.90); GLUCOSE 158 MG/DL (70-104); POTASSIUM 4.6 MMOL/L (3.5-5.1); SODIUM 141 MMOL/L (135-145); TOTAL CARBON DIOXIDE 27.4 MMOL/L (24-32); TOTAL PROTEIN 7.9 G/DL (6.4-8.2); eGFR 67 ML/MIN
[2020-02-21 14:32] LABS: PARTIAL THROMBOPLASTIN TIME 21 SECONDS (22-32)
[2020-02-21 16:26] VITALS: BP 163/89
== END 2020-02-21 16:26 | disposition home or self-care (01) ==
LOC: ER 12:18
DX: R04.0 Epistaxis (principal); I10 Essential (primary) hypertension; I25.2 Old myocardial infarction; J44.9 Chronic obstructive pulmonary disease, unspecified; E11.9 Type 2 diabetes mellitus without complications; G89.29 Other chronic pain; F12.90 Cannabis use, unspecified, uncomplicated; F15.90 Other stimulant use, unspecified, uncomplicated; Z86.73 Personal history of transient ischemic attack (TIA), and cerebral infarction without residual deficits; Z98.890 Other specified postprocedural states; Z88.5 Allergy status to narcotic agent; Z88.0 Allergy status to penicillin; Z88.1 Allergy status to other antibiotic agents; Z91.010 Allergy to peanuts; Z91.018 Allergy to other foods; Z79.82 Long term (current) use of aspirin; Z79.2 Long term (current) use of antibiotics; Z79.899 Other long term (current) drug therapy
CPT/HCPCS: 36415; 80053; 85025; 85610; 85730; 93005; 96365; 96375; 96376; 99285; J0360; J0780; J2060; J7030; 84484

== ENCOUNTER 2020-06-13 18:15 | Inpatient (IN) | payer MEDICAID ==
[~2020-06-13] VITALS: Ht 172.7 cm; Wt 93.4 kg
[~2020-06-13 18:15] MED LIST changes: -LIDOcaine 1% W/epiNEPHrine 1:200,000 10ml vial ONE; -SULF1TAB49 PO
--- NOTE | 2020-06-13 18:56 | NUR ---
BG OF 432
[2020-06-13 19:20] LABS: BASOPHILS # (AUTO) 0.1 X10'3 (0-0.2); BASOPHILS % (AUTO) 0.6 % (0-1); EOSINOPHILS # (AUTO) 0.1 X10'3 (0-0.9); EOSINOPHILS % (AUTO) 0.6 % (0-6); HEMATOCRIT 43.4 % (35.0-45.0); HEMOGLOBIN 14.3 g/dl (12.0-16.0); LYMPHOCYTES # (AUTO) 2.4 X10'3 (1.1-4.8); LYMPHOCYTES % (AUTO) 24.9 % (21-51); MEAN CORPUSCULAR HEMOGLOBIN 28.4 PG (27.0-31.0); MEAN CORPUSCULAR HGB CONC 32.8 g/dL (33.0-36.5); MEAN CORPUSCULAR VOLUME 86.3 FL (78-98); MEAN PLATELET VOLUME 9.6 FL (7.4-10.4); MONOCYTES # (AUTO) 0.8 X10'3 (0-0.9); MONOCYTES % (AUTO) 8.4 % (2-12); NEUTROPHILS # (AUTO) 6.4 X10'3 (1.8-7.7); NEUTROPHILS % (AUTO) 65.5 % (42-75); PLATELET COUNT 195 X10'3 (140-440); RED BLOOD COUNT 5.03 X10'6 (4.20-5.60); RED CELL DISTRIBUTION WIDTH 14.9 % (11.5-14.5); WHITE BLOOD COUNT 9.8 X10'3 (4.5-11.0)
[2020-06-13 19:39] LABS: ALANINE AMINOTRANSFERASE 71 U/L (12-78); ALBUMIN 3.9 G/DL (3.4-5.0); ALBUMIN/GLOBULIN RATIO 0.8 (1.1-1.5); ALKALINE PHOSPHATASE 131 IU/L (46-116); ANION GAP 14 (8-16); ASPARTATE AMINO TRANSFERASE 51 U/L (10-37); BILIRUBIN,TOTAL 0.5 MG/DL (0.1-1.0); BLOOD UREA NITROGEN 31 MG/DL (7-18); BUN/CREATININE RATIO 22.5 (6.6-38.0); CALCIUM 10.2 MG/DL (8.5-10.1); CHLORIDE 96 MMOL/L (99-107); CREATININE 1.38 MG/DL (0.40-0.90); POTASSIUM 4.6 MMOL/L (3.5-5.1); SODIUM 131 MMOL/L (135-145); TOTAL CARBON DIOXIDE 21.5 MMOL/L (24-32); TOTAL PROTEIN 8.6 G/DL (6.4-8.2); eGFR 39 ML/MIN
[2020-06-13 19:49] LABS: GLUCOSE 504 MG/DL (70-104)
[2020-06-13] MEDS ORDERED: famotidine/PF 10 mg/ml inj IV ONE (20:05)
[2020-06-13] MEDS ORDERED: pantoprazole 40 MG vial IV ONE (20:05)
[2020-06-13] MEDS ORDERED: insulin regular, human 10 units/0.1 ml syringe IV ONE (20:05)
[2020-06-13] MEDS ORDERED: AMLO5TAB16 PO (20:09)
[2020-06-13] MEDS ORDERED: DIPH-518 PO (20:09)
[2020-06-13] MEDS ORDERED: LORA10TA7 PO (20:09)
[2020-06-13] MEDS ORDERED: EPIN0.3A3 IM (20:09)
[2020-06-13] MEDS ORDERED: METF-436 PO (20:09)
[2020-06-13] MEDS ORDERED: ASPI-845 PO (20:09)
[2020-06-13] MEDS ORDERED: ALBU2.5V10 PO (20:10)
[2020-06-13] MEDS ORDERED: ondansetron/PF 4mg/2ml inj IV PRN (20:25)
[2020-06-13] MEDS ORDERED: glucagon, human recombinant 1mg kit SUBCUT PRN (20:25)
[2020-06-13] MEDS ORDERED: mag hydrox/Alum hydrox/simeth 30ml oral suspension PO PRN (20:25)
[2020-06-13] MEDS ORDERED: acetaminophen 325mg tablet PO PRN (20:25)
[2020-06-13] MEDS ORDERED: magnesium hydroxide 30ml (MOM) UD suspension PO PRN (20:25)
[2020-06-13] MEDS ORDERED: dextrose 50%-water 50ml dispensing syringe IV PRN ×2 (20:25)
[2020-06-13] MEDS ORDERED: dextrose ORAL solution 15 GM/59 ML bottle PO PRN ×2 (20:25)
[2020-06-13] MEDS ORDERED: MESSAGE TO PHARMACY PO ONE (20:25)
[2020-06-13] MEDS ORDERED: nitroGLYCERIN 0.4mg SUBLingual tab SL PRN ×3 (20:25→22:30)
[2020-06-13] MEDS ORDERED: EPINEPHRINE 0.3 MG IM PRN (20:30)
[2020-06-13 20:45] LABS: HEMOGLOBIN A1C 10.8 % (4.5-6.2)
[2020-06-13] MEDS: insulin glargine (Lantus) pen - multi-dose SQ SCH (21:51)
[2020-06-13] MEDS ORDERED: regadenoson 0.4mg/5ml syringe IV PRN (22:30)
[2020-06-13] MEDS ORDERED: aminophylline 250mg/10ml inj. IV PRN (22:30)
[2020-06-13] MEDS ORDERED: metoprolol tartrate 1mg/ml inj IV PRN (22:30)
[2020-06-14] VITALS (12 sets, daily range): BP systolic 119–169; BP diastolic 55–90
[2020-06-14 00:49] LABS: BASOPHILS # (AUTO) 0.1 X10'3 (0-0.2); BASOPHILS % (AUTO) 0.8 % (0-1); EOSINOPHILS # (AUTO) 0.1 X10'3 (0-0.9); EOSINOPHILS % (AUTO) 1.4 % (0-6); HEMATOCRIT 43.7 % (35.0-45.0); HEMOGLOBIN 14.5 g/dl (12.0-16.0); LYMPHOCYTES # (AUTO) 3.1 X10'3 (1.1-4.8); LYMPHOCYTES % (AUTO) 30.9 % (21-51); MEAN CORPUSCULAR HEMOGLOBIN 28.6 PG (27.0-31.0); MEAN CORPUSCULAR VOLUME 86.4 FL (78-98); MEAN PLATELET VOLUME 9.3 FL (7.4-10.4); MONOCYTES # (AUTO) 0.8 X10'3 (0-0.9); MONOCYTES % (AUTO) 8.3 % (2-12); NEUTROPHILS # (AUTO) 5.8 X10'3 (1.8-7.7); NEUTROPHILS % (AUTO) 58.6 % (42-75); PLATELET COUNT 209 X10'3 (140-440); RED BLOOD COUNT 5.06 X10'6 (4.20-5.60); RED CELL DISTRIBUTION WIDTH 14.7 % (11.5-14.5)
[2020-06-14 00:59] LABS: D-DIMER 0.25 MG/L FEU (0-0.50)
[2020-06-14 01:07] LABS: ALBUMIN 3.9 G/DL (3.4-5.0); ANION GAP 16 (8-16); BLOOD UREA NITROGEN 31 MG/DL (7-18); CALCIUM 10.4 MG/DL (8.5-10.1); CHLORIDE 98 MMOL/L (99-107); CHOL/HDL RATIO 3.2 (0.00-4.99); CHOLESTEROL 184 MG/DL (0-200); CREATININE 1.29 MG/DL (0.40-0.90); GLUCOSE 287 MG/DL (70-104); HDL CHOLESTEROL 57 MG/DL (35-60); LDL CHOLESTEROL 109 MG/DL (50-100); POTASSIUM 4.4 MMOL/L (3.5-5.1); SODIUM 136 MMOL/L (135-145); TOTAL CARBON DIOXIDE 22.5 MMOL/L (24-32); TRIGLYCERIDES 196 MG/DL (20-135); eGFR 42 ML/MIN
--- NOTE | 2020-06-14 06:40 | NUR ---
Patient in room PCU 3017. I have received report from Kole DOYLE and had the opportunity to ask questions and assume patient care.
[2020-06-14] MEDS: aspirin 81mg tablet.DR PO SCH (08:00)
[2020-06-14] MEDS ORDERED: aspirin 81mg tablet.DR PO SCH (08:00)
[2020-06-14] MEDS: budesonide 0.5mg/2ml UD nebule IH SCH ×2 (09:00→19:24)
[2020-06-14] MEDS: fluticasone nasal spray 16GM bottle NS SCH (11:14)
[2020-06-14] MEDS: loratadine 10mg tablet PO SCH (11:15)
[2020-06-14] MEDS: amLODIPine 5mg tablet PO SCH (11:15)
[2020-06-14] MEDS: losartan 50mg tablet PO SCH (11:17)
--- NOTE | 2020-06-14 12:03 | NUR ---
Paged Dr. Armstorng PAGER ID: [phone] MESSAGE: Re: Clotilde Blount [id number]. FYI Sofi test complete and results are in. Thank you Talia DOYLE [phone]
[2020-06-14] MEDS: insulin Lispro (HumaLOG) vial - multi-dose SQ SCH ×3 (13:49→21:04)
--- NOTE | 2020-06-14 14:30 | NUR ---
Patient was educated on the insulin administration. A demonstrated by RN after lunch was consumed, Pt was able to draw up own insulin based on the calculation of carbs and BS to Hospital protocol. The intent was to educate pt in the administration of insulin in a safe manner to be able to do it herself at home when discharged. Patient then physically drawn up insulin, cleaned area and administered insulin. Patient tolerated well and was able to vocalize self help instructions. All questions were answered. As demonstration was conducted, the Dietary consult was also conducted with an A1C of 10.8. We will continue to help educate patient for when she is discharged.
--- NOTE | 2020-06-14 15:37 | NUR ---
DM consult: A1c 10.8%. RD fall internship met with patient at [facility] for written/verbal DM education with RD contact information provided. A1c 6.4% prior visit in July 2019, pt reports since last admit has moved in with roommates and had no control over food prepared. Pt also ran out of medicine b/c PCP could not refill Rx. Pt reports she is aware her diet management is poor, and a typical diet includes sodas, milk, large amounts of fruit and snacking late at night. Educated pt on My[employer] and importance of portion control of foods. Encouraged pt to follow up with PCP and contact RDs with any questions. To provide full assessment at date above. Addendum: 06/14/20 at [address] Amended: Links added. Addendum: 06/14/20 at [address] [employer] agrees w/ above software intern note.
--- NOTE | 2020-06-14 17:49 | NUR ---
Paged Dr. Armstrong, PAGER ID: [phone] MESSAGE: Re: Clotilde Blount RM [id number]. Pt requesting Tylenol for headache. Please Advise, Thank you Talia DOYLE [phone] Addendum: 06/14/20 at 1754 by Talia Servin RN Dr. Patti mistry and TIMI Tylenol.
[2020-06-14] MEDS ORDERED: acetaminophen 325mg tablet PO PRN (17:55)
--- NOTE | 2020-06-14 18:05 | NUR ---
Problems reprioritized. Patient report given, questions answered & plan of care reviewed with Kole DOYLE.
--- NOTE | 2020-06-14 18:54 | NUR ---
PAGER ID: [phone] MESSAGE: [phone] anat hensley . complaining of multiple vague issues. please call for further update . thank you Demarcus marshall pcu [phone]
[2020-06-14] MEDS: insulin glargine (Lantus) pen - multi-dose SQ SCH (21:00)
[2020-06-15 02:00] VITALS: BP 119/79
--- NOTE | 2020-06-15 06:28 | NUR ---
Patient in room PCU 3017. I have received report from Kole DOYLE and had the opportunity to ask questions and assume patient care.
[2020-06-15 07:00] VITALS: BP 140/69
[2020-06-15] MEDS: loratadine 10mg tablet PO SCH (08:00)
[2020-06-15 08:03] LABS: BASOPHILS % (AUTO) 0.7 % (0-1); EOSINOPHILS # (AUTO) 0.1 X10'3 (0-0.9); EOSINOPHILS % (AUTO) 2.1 % (0-6); HEMATOCRIT 43.5 % (35.0-45.0); HEMOGLOBIN 14.1 g/dl (12.0-16.0); LYMPHOCYTES # (AUTO) 1.5 X10'3 (1.1-4.8); LYMPHOCYTES % (AUTO) 22.1 % (21-51); MEAN CORPUSCULAR HEMOGLOBIN 28.5 PG (27.0-31.0); MEAN CORPUSCULAR HGB CONC 32.5 g/dL (33.0-36.5); MEAN CORPUSCULAR VOLUME 87.8 FL (78-98); MEAN PLATELET VOLUME 9.8 FL (7.4-10.4); MONOCYTES # (AUTO) 0.6 X10'3 (0-0.9); MONOCYTES % (AUTO) 8.6 % (2-12); NEUTROPHILS # (AUTO) 4.6 X10'3 (1.8-7.7); NEUTROPHILS % (AUTO) 66.5 % (42-75); PLATELET COUNT 175 X10'3 (140-440); RED BLOOD COUNT 4.95 X10'6 (4.20-5.60); WHITE BLOOD COUNT 6.9 X10'3 (4.5-11.0)
[2020-06-15] MEDS: fluticasone nasal spray 16GM bottle NS SCH (08:11)
[2020-06-15] MEDS: aspirin 81mg tablet.DR PO SCH (08:11)
[2020-06-15 08:12] LABS: ALBUMIN 3.3 G/DL (3.4-5.0); ANION GAP 11 (8-16); BLOOD UREA NITROGEN 31 MG/DL (7-18); BUN/CREATININE RATIO 22.6 (6.6-38.0); CHLORIDE 101 MMOL/L (99-107); CREATININE 1.37 MG/DL (0.40-0.90); GLUCOSE 260 MG/DL (70-104); POTASSIUM 4.8 MMOL/L (3.5-5.1); SODIUM 135 MMOL/L (135-145); TOTAL CARBON DIOXIDE 22.6 MMOL/L (24-32); eGFR 40 ML/MIN
[2020-06-15] MEDS: amLODIPine 5mg tablet PO SCH (08:12)
[2020-06-15] MEDS: losartan 50mg tablet PO SCH (08:13)
[2020-06-15] MEDS: budesonide 0.5mg/2ml UD nebule IH SCH (08:25)
[2020-06-15] MEDS: insulin Lispro (HumaLOG) vial - multi-dose SQ SCH ×2 (08:32→13:24)
--- NOTE | 2020-06-15 08:55 | NUR ---
Dr. Armstrong at bedside with nurse and patient. MD is aware of pts complaints and concerns. Patient will be sent home on insulin with the intent to follow up with her PCP in 2 weeks. Patient was able to self inject self this am as well after eating breakfast. Pt c/o of rib pain as she states she fell before admission. All supplies were given and educated on. Patient was able to verbalize understanding and demonstrate the injection procedure. MD will DC to home today. Will continue to monitor. Addendum: 06/15/20 at 0901 by Talia Servin RN Dr. Armstrong discussed with pt about the pain she has in lung, CXR showed no fractures.
[2020-06-15] MEDS ORDERED: INSU100V9 SQ (09:13)
[2020-06-15 11:00] VITALS: BP 110/65
--- NOTE | 2020-06-15 12:42 | NUR ---
DM Consult: Addressed; see prior RD note. Addendum: 06/15/20 at [address] Amended: Links added.
--- NOTE | 2020-06-15 13:42 | NUR ---
Patient OK to discharge per MD orders. Patient was again educated on the insulin procedure and care of it. The insulin pen was demonstrated. Patient was able to verbalize acknowledgment and demonstrate the process. Patient was able to dress self, PIV was removed and tele was removed, pt tolerated well. Patients items and teaching supplies were sent with patient. Patient was escorted to the front lobby via wheelchair and RN. A private vehicle was waiting outfront. Patient was seen getting into vehicle with all personal items.
== END 2020-06-15 14:19 | disposition home or self-care (01) | DRG 420 ==
LOC: ER 18:16 → ED HOLD 20:23 → PCU 3S 06-14 00:50 → OBSVTOIN 06-14 08:00
PROVIDERS: ADMIT Internal Medicine; ATTEND Internal Medicine
DX: E11.65 Type 2 diabetes mellitus with hyperglycemia (principal); J44.9 Chronic obstructive pulmonary disease, unspecified; I25.10 Atherosclerotic heart disease of native coronary artery without angina pectoris; I25.2 Old myocardial infarction; Z90.49 Acquired absence of other specified parts of digestive tract; Z88.8 Allergy status to other drugs, medicaments and biological substances; Z83.3 Family history of diabetes mellitus; Z88.0 Allergy status to penicillin; Z86.73 Personal history of transient ischemic attack (TIA), and cerebral infarction without residual deficits; R07.89 Other chest pain; F12.90 Cannabis use, unspecified, uncomplicated; F15.90 Other stimulant use, unspecified, uncomplicated; I12.9 Hypertensive chronic kidney disease with stage 1 through stage 4 chronic kidney disease, or unspecified chronic kidney disease; N18.30 Chronic kidney disease, stage 3 unspecified; Z79.899 Other long term (current) drug therapy; E11.22 Type 2 diabetes mellitus with diabetic chronic kidney disease; G89.29 Other chronic pain
CPT/HCPCS: 36415; 71045; 78452; 80048; 80053; 80061; 82948; 83036; 83880; 84484; 85025; 85379; 87081; 93005; 93017; 94640; 94760; 99285; A9500; C9113; G0378; J1815; J2785; J3490; J7626

== ENCOUNTER 2020-11-29 19:01 | Emergency (ER) | payer MEDICAID ==
[~2020-11-29] VITALS: Ht 172.7 cm; Wt 115.3 kg
[~2020-11-29 19:01] MED LIST changes: +ALBU2.5V10 PO; +AMLO5TAB16 PO; -ASPI-611 PO; +ASPI-845 PO; +DIPH-518 PO; +EPIN0.3A3 IM; -FAMO-128 PO; -HYDR12.55 PO; +INSU100V9 SQ; +LORA10TA7 PO; +METF-436 PO; -MULT-227 PO; -ONDA4TAB6 PO
[2020-11-29] MEDS ORDERED: triamcinolone acetonide 40mg/ml inj IM ONE (19:05)
[2020-11-29] MEDS ORDERED: orphenadrine citrate 60mg/2ml inj. IM ONE (19:05)
[2020-11-29] MEDS ORDERED: ibuprofen tablet 400 MG TABLET PO ONE (19:05)
[2020-11-29] MEDS ORDERED: ORPH100T2 PO (21:35)
[2020-11-29] MEDS ORDERED: HYDR-3972 PO (21:44)
[2020-11-29] MEDS ORDERED: ONDA4TAB6 PO (21:44)
--- NOTE | 2020-11-29 22:02 | NUR ---
PATIENT LEFT, OKAY WITHOUT GETTING MEDS.
[2020-11-29 22:04] VITALS: BP 188/99
== END 2020-11-29 22:05 | disposition home or self-care (01) ==
LOC: ER 19:02
DX: M79.605 Pain in left leg (principal); M54.5 Low back pain; I11.9 Hypertensive heart disease without heart failure; J45.909 Unspecified asthma, uncomplicated; E11.9 Type 2 diabetes mellitus without complications; F12.10 Cannabis abuse, uncomplicated; F15.10 Other stimulant abuse, uncomplicated; Z88.5 Allergy status to narcotic agent; Z88.1 Allergy status to other antibiotic agents; Z88.0 Allergy status to penicillin; Z88.8 Allergy status to other drugs, medicaments and biological substances; Z91.010 Allergy to peanuts
CPT/HCPCS: 72100; 99283

== ENCOUNTER 2020-12-25 15:24 | Emergency (ER) | payer MEDICAID ==
[~2020-12-25] VITALS: Ht 172.7 cm; Wt 110.5 kg
[~2020-12-25 15:24] MED LIST changes: +HYDR-3972 PO; +ONDA4TAB6 PO; +ORPH100T2 PO
[2020-12-25] MEDS ORDERED: normal saline 1000ml 1,000 ML IV ONE (15:45)
[2020-12-25 16:20] LABS: BASOPHILS # (AUTO) 0.1 X10'3 (0-0.2); BASOPHILS % (AUTO) 0.7 % (0-1); EOSINOPHILS # (AUTO) 0.1 X10'3 (0-0.9); EOSINOPHILS % (AUTO) 0.9 % (0-6); HEMOGLOBIN 14.8 g/dl (12.0-16.0); LYMPHOCYTES # (AUTO) 2.2 X10'3 (1.1-4.8); LYMPHOCYTES % (AUTO) 24.2 % (21-51); MEAN CORPUSCULAR HEMOGLOBIN 29.1 PG (27.0-31.0); MEAN CORPUSCULAR HGB CONC 33.5 g/dL (33.0-36.5); MEAN CORPUSCULAR VOLUME 86.9 FL (78-98); MEAN PLATELET VOLUME 9.7 FL (7.4-10.4); MONOCYTES # (AUTO) 0.6 X10'3 (0-0.9); NEUTROPHILS # (AUTO) 6.2 X10'3 (1.8-7.7); NEUTROPHILS % (AUTO) 67.2 % (42-75); PLATELET COUNT 223 X10'3 (140-440); RED BLOOD COUNT 5.06 X10'6 (4.20-5.60); WHITE BLOOD COUNT 9.2 X10'3 (4.5-11.0)
[2020-12-25 17:14] LABS: ALANINE AMINOTRANSFERASE 77 U/L (12-78); ALBUMIN 3.6 G/DL (3.4-5.0); ALBUMIN/GLOBULIN RATIO 0.7 (1.1-1.5); ALKALINE PHOSPHATASE 172 IU/L (46-116); ANION GAP 15 (8-16); ASPARTATE AMINO TRANSFERASE 68 U/L (10-37); BILIRUBIN,TOTAL 0.5 MG/DL (0.1-1.0); BLOOD UREA NITROGEN 20 MG/DL (7-18); BUN/CREATININE RATIO 20.6 (6.6-38.0); CALCIUM 9.5 MG/DL (8.5-10.1); CHLORIDE 100 MMOL/L (99-107); CREATININE 0.97 MG/DL (0.40-0.90); GLUCOSE 337 MG/DL (70-104); POTASSIUM 4.1 MMOL/L (3.5-5.1); SODIUM 137 MMOL/L (135-145); TOTAL CARBON DIOXIDE 21.6 MMOL/L (24-32); TOTAL PROTEIN 8.6 G/DL (6.4-8.2); eGFR 59 ML/MIN
[2020-12-25 17:20] LABS: MAGNESIUM 1.9 MG/DL (1.5-2.4)
[2020-12-25 17:39] LABS: D-DIMER < 0.19 MG/L FEU (0-0.50)
[2020-12-25] MEDS ORDERED: ibuprofen 200mg tablet PO ONE (19:10)
[2020-12-25 19:24] VITALS: BP 169/94
== END 2020-12-25 19:27 | disposition home or self-care (01) ==
LOC: ER 15:24
DX: R00.0 Tachycardia, unspecified (principal); R53.83 Other fatigue; R07.89 Other chest pain; I25.10 Atherosclerotic heart disease of native coronary artery without angina pectoris; I10 Essential (primary) hypertension; I25.2 Old myocardial infarction; J44.9 Chronic obstructive pulmonary disease, unspecified; E11.9 Type 2 diabetes mellitus without complications; G89.29 Other chronic pain; F12.90 Cannabis use, unspecified, uncomplicated; F15.90 Other stimulant use, unspecified, uncomplicated; Z86.73 Personal history of transient ischemic attack (TIA), and cerebral infarction without residual deficits; Z98.890 Other specified postprocedural states; Z88.5 Allergy status to narcotic agent; Z88.0 Allergy status to penicillin; Z88.1 Allergy status to other antibiotic agents; Z91.018 Allergy to other foods; Z88.8 Allergy status to other drugs, medicaments and biological substances; Z79.82 Long term (current) use of aspirin; Z79.4 Long term (current) use of insulin; Z79.899 Other long term (current) drug therapy
CPT/HCPCS: 36415; 71045; 80053; 83735; 83880; 84484; 85025; 85379; 93005; 96360; 99285; J7030

== ENCOUNTER 2021-01-08 15:47 | Emergency (ER) | payer MEDICAID ==
[~2021-01-08] VITALS: Ht 165.1 cm; Wt 111.0 kg
[~2021-01-08 15:47] MED LIST changes: -HYDR-3972 PO
[2021-01-08 16:22] VITALS: BP 141/89
[2021-01-08 17:36] LABS: BASOPHILS % (AUTO) 0.5 % (0-1); EOSINOPHILS # (AUTO) 0.1 X10'3 (0-0.9); EOSINOPHILS % (AUTO) 2.2 % (0-6); HEMATOCRIT 39.1 % (35.0-45.0); HEMOGLOBIN 12.9 g/dl (12.0-16.0); LYMPHOCYTES # (AUTO) 1.7 X10'3 (1.1-4.8); LYMPHOCYTES % (AUTO) 29.1 % (21-51); MEAN CORPUSCULAR HGB CONC 33.1 g/dL (33.0-36.5); MEAN CORPUSCULAR VOLUME 87.8 FL (78-98); MEAN PLATELET VOLUME 9.4 FL (7.4-10.4); MONOCYTES # (AUTO) 0.5 X10'3 (0-0.9); MONOCYTES % (AUTO) 7.9 % (2-12); NEUTROPHILS # (AUTO) 3.5 X10'3 (1.8-7.7); NEUTROPHILS % (AUTO) 60.3 % (42-75); PLATELET COUNT 164 X10'3 (140-440); RED BLOOD COUNT 4.46 X10'6 (4.20-5.60); RED CELL DISTRIBUTION WIDTH 14.3 % (11.5-14.5); WHITE BLOOD COUNT 5.8 X10'3 (4.5-11.0)
[2021-01-08 18:11] LABS: ALANINE AMINOTRANSFERASE 119 U/L (12-78); ALBUMIN 3.2 G/DL (3.4-5.0); ALBUMIN/GLOBULIN RATIO 0.7 (1.1-1.5); ALKALINE PHOSPHATASE 134 IU/L (46-116); ANION GAP 16 (8-16); ASPARTATE AMINO TRANSFERASE 116 U/L (10-37); BILIRUBIN,TOTAL 0.3 MG/DL (0.1-1.0); BLOOD UREA NITROGEN 18 MG/DL (7-18); BUN/CREATININE RATIO 17.5 (6.6-38.0); CALCIUM 8.9 MG/DL (8.5-10.1); CHLORIDE 104 MMOL/L (99-107); CREATININE 1.03 MG/DL (0.40-0.90); GLUCOSE 326 MG/DL (70-104); POTASSIUM 4.1 MMOL/L (3.5-5.1); SODIUM 139 MMOL/L (135-145); TOTAL CARBON DIOXIDE 19.3 MMOL/L (24-32); TOTAL PROTEIN 7.6 G/DL (6.4-8.2); eGFR 55 ML/MIN
[2021-01-08 18:20] LABS: MAGNESIUM 1.7 MG/DL (1.5-2.4)
== END 2021-01-08 20:31 | disposition left against medical advice (07) ==
LOC: ER 15:48
DX: R07.89 Other chest pain (principal); R11.0 Nausea; R06.02 Shortness of breath; M25.562 Pain in left knee; I25.10 Atherosclerotic heart disease of native coronary artery without angina pectoris; I10 Essential (primary) hypertension; I25.2 Old myocardial infarction; J44.9 Chronic obstructive pulmonary disease, unspecified; G89.29 Other chronic pain; F12.90 Cannabis use, unspecified, uncomplicated; F15.90 Other stimulant use, unspecified, uncomplicated; Z86.73 Personal history of transient ischemic attack (TIA), and cerebral infarction without residual deficits; Z98.890 Other specified postprocedural states; Z88.5 Allergy status to narcotic agent; Z88.0 Allergy status to penicillin; Z88.1 Allergy status to other antibiotic agents; Z91.010 Allergy to peanuts; Z79.82 Long term (current) use of aspirin; Z79.4 Long term (current) use of insulin; Z79.899 Other long term (current) drug therapy
CPT/HCPCS: 36415; 71045; 73564; 73590; 80053; 83735; 83880; 84484; 85025; 93005; 99285

== ENCOUNTER 2021-01-25 12:59 | Emergency (ER) | payer MEDICAID ==
[~2021-01-25] VITALS: Ht 172.7 cm; Wt 108.6 kg
[2021-01-25] MEDS ORDERED: CefTRIAXone 2gm/D5W 50ml BAG 50 ML IV ONE (14:40)
[2021-01-25] MEDS ORDERED: vancomycin/NS 1 GM ADD-VANTAGE 250 ML IV ONE (14:40)
[2021-01-25] MEDS ORDERED: CEPH-585 PO (14:42)
[2021-01-25] MEDS ORDERED: fentaNYL/PF 50MCG/1 ML 2ML syringe IM ONE (16:00)
[2021-01-25] MEDS ORDERED: ondansetron 4mg rapidly disintigrating tab PO ONE (16:00)
[2021-01-25 19:26] VITALS: BP 156/93
== END 2021-01-25 19:49 | disposition home or self-care (01) ==
LOC: ER 12:59
DX: L03.211 Cellulitis of face (principal); K04.7 Periapical abscess without sinus; I25.10 Atherosclerotic heart disease of native coronary artery without angina pectoris; I10 Essential (primary) hypertension; I25.2 Old myocardial infarction; J44.9 Chronic obstructive pulmonary disease, unspecified; E11.9 Type 2 diabetes mellitus without complications; G89.29 Other chronic pain; F12.90 Cannabis use, unspecified, uncomplicated; F15.90 Other stimulant use, unspecified, uncomplicated; Z86.73 Personal history of transient ischemic attack (TIA), and cerebral infarction without residual deficits; Z98.890 Other specified postprocedural states; Z88.5 Allergy status to narcotic agent; Z88.0 Allergy status to penicillin; Z88.1 Allergy status to other antibiotic agents; Z91.010 Allergy to peanuts; Z91.018 Allergy to other foods; Z79.82 Long term (current) use of aspirin; Z79.4 Long term (current) use of insulin; Z79.899 Other long term (current) drug therapy
CPT/HCPCS: 82948; 96365; 96366; 96368; 96372; 99285; J0696; J3010; J3370

== ENCOUNTER 2021-03-29 00:35 | Emergency (ER) | payer MEDICAID ==
[~2021-03-29] VITALS: Ht 172.7 cm; Wt 108.5 kg
[~2021-03-29 00:35] MED LIST changes: +CEPH-585 PO
[2021-03-29 00:47] VITALS: BP 149/72
[2021-03-29] MEDS: acetaminophen 325mg tablet PO ONE (01:53)
[2021-03-29 02:19] LABS: BASOPHILS % (AUTO) 0.4 % (0-1); EOSINOPHILS % (AUTO) 0.1 % (0-6); HEMATOCRIT 38.6 % (35.0-45.0); LYMPHOCYTES # (AUTO) 0.9 X10'3 (1.1-4.8); LYMPHOCYTES % (AUTO) 25.5 % (21-51); MEAN CORPUSCULAR HEMOGLOBIN 28.9 PG (27.0-31.0); MEAN CORPUSCULAR HGB CONC 33.8 g/dL (33.0-36.5); MEAN CORPUSCULAR VOLUME 85.4 FL (78-98); MEAN PLATELET VOLUME 9.3 FL (7.4-10.4); MONOCYTES # (AUTO) 0.3 X10'3 (0-0.9); MONOCYTES % (AUTO) 8.6 % (2-12); NEUTROPHILS # (AUTO) 2.3 X10'3 (1.8-7.7); NEUTROPHILS % (AUTO) 65.4 % (42-75); PLATELET COUNT 139 X10'3 (140-440); RED BLOOD COUNT 4.52 X10'6 (4.20-5.60); RED CELL DISTRIBUTION WIDTH 13.8 % (11.5-14.5); WHITE BLOOD COUNT 3.5 X10'3 (4.5-11.0)
[2021-03-29 02:33] LABS: ALANINE AMINOTRANSFERASE 69 U/L (12-78); ALBUMIN/GLOBULIN RATIO 0.6 (1.1-1.5); ALKALINE PHOSPHATASE 151 IU/L (46-116); ANION GAP 11 (8-16); ASPARTATE AMINO TRANSFERASE 96 U/L (10-37); BILIRUBIN,TOTAL 0.6 MG/DL (0.1-1.0); BLOOD UREA NITROGEN 14 MG/DL (7-18); BUN/CREATININE RATIO 14.3 (6.6-38.0); CALCIUM 8.4 MG/DL (8.5-10.1); CHLORIDE 97 MMOL/L (99-107); CREATININE 0.98 MG/DL (0.40-0.90); GLUCOSE 336 MG/DL (70-104); POTASSIUM 3.9 MMOL/L (3.5-5.1); SODIUM 132 MMOL/L (135-145); TOTAL CARBON DIOXIDE 24.3 MMOL/L (24-32); TOTAL PROTEIN 7.7 G/DL (6.4-8.2); eGFR 58 ML/MIN
[2021-03-29] MEDS ORDERED: iohexol 350MG/ML 100ml bottle IV ONE (02:45)
[2021-03-29 04:01] LABS: D-DIMER 0.35 MG/L FEU (0-0.50)
[2021-03-29 04:42] LABS: CLARITY,URINE CLOUDY (Clear); GLUCOSE, URINE >=1000 mg/dl (Neg); KETONES,URINE TRACE mg/dl (Neg); LEUKOCYTE ESTERASE ,URINE TRACE (Neg); NITRITES, URINE NEGATIVE (Neg); OCCULT BLOOD,URINE NEGATIVE (Neg); PROTEIN,URINE TRACE mg/dl (Neg); UROBILINOGEN,URINE 0.2 E.U/dL (0.2-1.0)
[2021-03-29 04:46] LABS: COLOR,URINE DARK YELLOW (Yellow); UA COLLECTION TYPE CLN CATCH MIDSTREAM
[2021-03-29 04:50] LABS: WBC CLUMPS,URINE FEW /HPF (NEGATIVE)
[2021-03-29 04:53] LABS: WBC,URINE 20-30 /HPF (0-4)
[2021-03-29 04:54] LABS: RBC,URINE 0-2 /HPF (0-2); SQUAMOUS EPITHELIAL CELL,UR FEW /LPF (FEW)
[2021-03-29 05:07] LABS: BACTERIA,URINE 4+ /HPF (Neg)
[2021-03-29] MEDS ORDERED: CIPR-202 PO (05:18)
[2021-03-29] MEDS: CefTRIAXone/D5W-Rocephin 1gm 50 ML IV ONE (06:11)
== END 2021-03-29 08:19 | disposition home or self-care (01) ==
LOC: EDUNIT# 00:35 → ER 00:37
DX: U07.1 COVID-19 (principal); R06.02 Shortness of breath; N39.0 Urinary tract infection, site not specified; I25.10 Atherosclerotic heart disease of native coronary artery without angina pectoris; I11.0 Hypertensive heart disease with heart failure; I50.9 Heart failure, unspecified; I25.2 Old myocardial infarction; J44.9 Chronic obstructive pulmonary disease, unspecified; E11.9 Type 2 diabetes mellitus without complications; G89.29 Other chronic pain; Z86.73 Personal history of transient ischemic attack (TIA), and cerebral infarction without residual deficits; Z95.5 Presence of coronary angioplasty implant and graft; F12.90 Cannabis use, unspecified, uncomplicated; F15.90 Other stimulant use, unspecified, uncomplicated; Z88.0 Allergy status to penicillin; Z88.5 Allergy status to narcotic agent; Z88.1 Allergy status to other antibiotic agents; Z91.010 Allergy to peanuts; Z91.018 Allergy to other foods; Z79.2 Long term (current) use of antibiotics; Z79.4 Long term (current) use of insulin; Z79.899 Other long term (current) drug therapy
CPT/HCPCS: 36415; 71045; 74176; 80053; 81001; 83605; 83880; 84145; 84484; 85025; 85379; 87040; 87088; 87502; 87503; 87635; 93005; 96365; 96366; 99285; C9803; J0696; Q9967

== ENCOUNTER 2022-06-19 21:16 | Emergency (ER) | payer MEDICAID ==
[~2022-06-19] VITALS: Ht 172.7 cm; Wt 107.7 kg
[~2022-06-19 21:16] MED LIST changes: -CEPH-585 PO; -ORPH100T2 PO; +ORPH100T4 PO
[2022-06-19 22:17] LABS: BASOPHILS # (AUTO) 0.1 X10'3 (0-0.2); BASOPHILS % (AUTO) 0.9 % (0-1); EOSINOPHILS # (AUTO) 0.1 X10'3 (0-0.9); EOSINOPHILS % (AUTO) 1.9 % (0-6); HEMATOCRIT 43.7 % (35.0-45.0); HEMOGLOBIN 14.4 g/dl (12.0-16.0); LYMPHOCYTES # (AUTO) 2.5 X10'3 (1.1-4.8); LYMPHOCYTES % (AUTO) 34.9 % (21-51); MEAN CORPUSCULAR HEMOGLOBIN 28.8 PG (27.0-31.0); MEAN CORPUSCULAR HGB CONC 32.9 g/dL (33.0-36.5); MEAN CORPUSCULAR VOLUME 87.4 FL (78-98); MEAN PLATELET VOLUME 9.1 FL (7.4-10.4); MONOCYTES # (AUTO) 0.4 X10'3 (0-0.9); NEUTROPHILS # (AUTO) 4.1 X10'3 (1.8-7.7); NEUTROPHILS % (AUTO) 56.3 % (42-75); PLATELET COUNT 182 X10'3 (140-440); RED CELL DISTRIBUTION WIDTH 14.3 % (11.5-14.5); WHITE BLOOD COUNT 7.2 X10'3 (4.5-11.0)
[2022-06-19] MEDS ORDERED: benzonatate 100mg capsule PO ONE (22:45)
[2022-06-19 23:14] LABS: ALANINE AMINOTRANSFERASE 82 U/L (12-78); ALBUMIN 3.6 G/DL (3.4-5.0); ALBUMIN/GLOBULIN RATIO 0.9 (1.1-1.5); ALKALINE PHOSPHATASE 151 IU/L (46-116); ANION GAP 13 (8-16); ASPARTATE AMINO TRANSFERASE 63 U/L (10-37); BILIRUBIN,TOTAL 0.4 MG/DL (0.1-1.0); BLOOD UREA NITROGEN 21 MG/DL (7-18); BUN/CREATININE RATIO 20.6 (10.0-20.0); CALCIUM 9.4 MG/DL (8.5-10.1); CHLORIDE 102 MMOL/L (99-107); CREATININE 1.02 MG/DL (0.40-0.90); GLUCOSE 240 MG/DL (70-104); POTASSIUM 3.9 MMOL/L (3.5-5.1); SODIUM 137 MMOL/L (135-145); TOTAL CARBON DIOXIDE 21.8 MMOL/L (24-32); TOTAL PROTEIN 7.7 G/DL (6.4-8.2); eGFR 55 ML/MIN
[2022-06-19 23:22] LABS: MAGNESIUM 2.1 MG/DL (1.5-2.4)
[2022-06-19 23:30] LABS: D-DIMER 0.21 MG/L FEU (0-0.50)
[2022-06-20] MEDS ORDERED: DOXY100C76 PO (00:10)
[2022-06-20] MEDS ORDERED: BENZ-38 PO (00:10)
[2022-06-20] MEDS ORDERED: TIOT4MIS5 INH (00:10)
[2022-06-20 00:20] VITALS: BP 156/107
== END 2022-06-20 00:26 | disposition home or self-care (01) ==
LOC: ER 21:17
DX: J06.9 Acute upper respiratory infection, unspecified (principal); I11.0 Hypertensive heart disease with heart failure; I50.9 Heart failure, unspecified; J44.9 Chronic obstructive pulmonary disease, unspecified; E11.9 Type 2 diabetes mellitus without complications; G89.29 Other chronic pain; I25.10 Atherosclerotic heart disease of native coronary artery without angina pectoris; F12.90 Cannabis use, unspecified, uncomplicated; F15.90 Other stimulant use, unspecified, uncomplicated; Z86.73 Personal history of transient ischemic attack (TIA), and cerebral infarction without residual deficits; Z98.890 Other specified postprocedural states; Z79.899 Other long term (current) drug therapy
CPT/HCPCS: 36415; 71045; 80053; 83735; 83880; 84484; 85025; 85379; 93005; 99285

== ENCOUNTER 2023-04-09 23:12 | Emergency (ER) | payer MEDICAID ==
[~2023-04-09] VITALS: Ht 172.7 cm; Wt 99.0 kg
[~2023-04-09 23:12] MED LIST changes: -LOSA100T57 PO; +LOSA100T58 PO; +TIOT4MIS5 INH
[2023-04-09 23:19] VITALS: BP 170/105; PULSE 100; RESP 18; TEMP 97.8; O2SAT 100
== END 2023-04-10 00:31 | disposition left against medical advice (07) ==
LOC: ER 23:13
DX: M79.10 Myalgia, unspecified site (principal); Z53.21 Procedure and treatment not carried out due to patient leaving prior to being seen by health care provider
CPT/HCPCS: 99281

== ENCOUNTER 2023-05-17 03:28 | Emergency (ER) | payer MEDICAID ==
[~2023-05-17] VITALS: Ht 172.7 cm; Wt 100.5 kg
[2023-05-17 03:31] VITALS: TEMP 98.5
[2023-05-17] MEDS: normal saline 1000ML IV soln IVB ONE (04:10)
[2023-05-17] MEDS: ondansetron/PF 4mg/2ml inj IV ONE (05:18)
[2023-05-17] MEDS: morphine 4 MG/ML inj SYRINge IV PRN (05:34)
[2023-05-17 05:55] LABS: BASOPHILS % (AUTO) 0.5 % (0-1); EOSINOPHILS # (AUTO) 0.2 X10'3 (0-0.9); EOSINOPHILS % (AUTO) 3.1 % (0-6); HEMOGLOBIN 13.7 g/dl (12.0-16.0); LYMPHOCYTES # (AUTO) 2.7 X10'3 (1.1-4.8); LYMPHOCYTES % (AUTO) 45.5 % (21-51); MEAN CORPUSCULAR HEMOGLOBIN 28.2 PG (27.0-31.0); MEAN CORPUSCULAR HGB CONC 32.6 g/dL (33.0-36.5); MEAN CORPUSCULAR VOLUME 86.7 FL (78-98); MEAN PLATELET VOLUME 9.5 FL (7.4-10.4); MONOCYTES # (AUTO) 0.4 X10'3 (0-0.9); MONOCYTES % (AUTO) 7.2 % (2-12); NEUTROPHILS # (AUTO) 2.6 X10'3 (1.8-7.7); NEUTROPHILS % (AUTO) 43.7 % (42-75); PLATELET COUNT 160 X10'3 (140-440); RED BLOOD COUNT 4.84 X10'6 (4.20-5.60); RED CELL DISTRIBUTION WIDTH 14.5 % (11.5-14.5); WHITE BLOOD COUNT 5.9 X10'3 (4.5-11.0)
[2023-05-17 06:13] LABS: ALBUMIN 3.4 G/DL (3.4-5.0); ANION GAP 12 (8-16); BLOOD UREA NITROGEN 13 MG/DL (7-18); BUN/CREATININE RATIO 14.6 (10.0-20.0); CHLORIDE 104 MMOL/L (99-107); CREATININE 0.89 MG/DL (0.40-0.90); GLUCOSE 319 MG/DL (70-104); LIPASE 46 U/L (16-77); POTASSIUM 3.9 MMOL/L (3.5-5.1); SODIUM 140 MMOL/L (135-145); TOTAL CARBON DIOXIDE 23.7 MMOL/L (24-32); eCRCL 67 ML/MIN; eGFR 64 ML/MIN
[2023-05-17] MEDS: insulin Lispro (HumaLOG) vial - multi-dose SQ SCH (07:03)
[2023-05-17 07:21] VITALS: BP 139/84; PULSE 93; RESP 18; O2SAT 98
[2023-05-17 07:52] LABS: BILIRUBIN,URINE NEGATIVE (Neg); CLARITY,URINE SLIGHTLY CLOUDY (Clear); COLOR,URINE YELLOW (Yellow); GLUCOSE, URINE >=1000 mg/dl (Neg); KETONES,URINE NEGATIVE (Neg); LEUKOCYTE ESTERASE ,URINE NEGATIVE (Neg); NITRITES, URINE POSITIVE (Neg); OCCULT BLOOD,URINE NEGATIVE (Neg); PROTEIN,URINE NEGATIVE (Neg); URINE HCG NEGATIVE (NEG); UROBILINOGEN,URINE 0.2 E.U/dL (0.2-1.0)
[2023-05-17 07:54] LABS: UA COLLECTION TYPE CLN CATCH MIDSTREAM
[2023-05-17 08:05] LABS: SQUAMOUS EPITHELIAL CELL,UR MODERATE /LPF (FEW)
[2023-05-17 08:07] LABS: YEAST MODERATE /HPF (NEGATIVE)
[2023-05-17 08:08] LABS: BACTERIA,URINE 3+ /HPF (Neg); RBC,URINE NONE SEEN /HPF (0-2)
[2023-05-17] MEDS ORDERED: CEPH-585 PO (09:55)
[2023-05-17] MEDS ORDERED: IBUP-1985 PO (09:55)
[2023-05-17] MEDS: CefTRIAXone 2gm/D5W 50ml BAG 50 ML IV ONE (10:00)
== END 2023-05-17 10:26 | disposition home or self-care (01) ==
LOC: ER 03:29
DX: N10 Acute pyelonephritis (principal); K08.89 Other specified disorders of teeth and supporting structures; I11.0 Hypertensive heart disease with heart failure; I50.9 Heart failure, unspecified; J44.9 Chronic obstructive pulmonary disease, unspecified; E11.9 Type 2 diabetes mellitus without complications; I25.10 Atherosclerotic heart disease of native coronary artery without angina pectoris; Z88.0 Allergy status to penicillin; Z88.5 Allergy status to narcotic agent; Z88.8 Allergy status to other drugs, medicaments and biological substances; Z79.899 Other long term (current) drug therapy; Z79.2 Long term (current) use of antibiotics; Z79.82 Long term (current) use of aspirin; I25.2 Old myocardial infarction; Z98.61 Coronary angioplasty status; Z98.890 Other specified postprocedural states; Z86.73 Personal history of transient ischemic attack (TIA), and cerebral infarction without residual deficits
CPT/HCPCS: 36415; 74176; 80048; 81001; 81025; 83690; 84484; 85025; 87077; 87088; 87186; 96365; 96372; 96375; 99285; J0696; J1815; J2405; J7030; 96361; J2270

== ENCOUNTER 2023-06-20 19:52 | Inpatient (IN) | payer MEDICAID ==
[~2023-06-20] VITALS: Ht 172.7 cm; Wt 100.0 kg
[~2023-06-20 19:52] MED LIST changes: +CEPH-585 PO; +IBUP-1985 PO
[2023-06-20 20:31] LABS: BASOPHILS # (AUTO) 0.1 X10'3 (0-0.2); BASOPHILS % (AUTO) 0.7 % (0-1); EOSINOPHILS # (AUTO) 0.1 X10'3 (0-0.9); HEMATOCRIT 48.4 % (35.0-45.0); HEMOGLOBIN 16.4 g/dl (12.0-16.0); LYMPHOCYTES # (AUTO) 2.4 X10'3 (1.1-4.8); LYMPHOCYTES % (AUTO) 18.4 % (21-51); MEAN CORPUSCULAR HEMOGLOBIN 28.8 PG (27.0-31.0); MEAN CORPUSCULAR HGB CONC 33.8 g/dL (33.0-36.5); MEAN CORPUSCULAR VOLUME 85.1 FL (78-98); MEAN PLATELET VOLUME 8.8 FL (7.4-10.4); MONOCYTES % (AUTO) 7.4 % (2-12); NEUTROPHILS # (AUTO) 9.5 X10'3 (1.8-7.7); NEUTROPHILS % (AUTO) 72.5 % (42-75); PLATELET COUNT 231 X10'3 (140-440); RED BLOOD COUNT 5.69 X10'6 (4.20-5.60); RED CELL DISTRIBUTION WIDTH 13.8 % (11.5-14.5)
[2023-06-20 20:52] LABS: ALANINE AMINOTRANSFERASE 57 U/L (12-78); ALBUMIN 3.6 G/DL (3.4-5.0); ALBUMIN/GLOBULIN RATIO 0.7 (1.1-1.5); ALKALINE PHOSPHATASE 277 IU/L (46-116); ANION GAP 17 (8-16); ASPARTATE AMINO TRANSFERASE 44 U/L (10-37); BILIRUBIN,TOTAL 1.1 MG/DL (0.1-1.0); BLOOD UREA NITROGEN 18 MG/DL (7-18); BUN/CREATININE RATIO 18.6 (10.0-20.0); CALCIUM 10.2 MG/DL (8.5-10.1); CHLORIDE 91 MMOL/L (99-107); CREATININE 0.97 MG/DL (0.40-0.90); POTASSIUM 4.4 MMOL/L (3.5-5.1); SODIUM 126 MMOL/L (135-145); TOTAL CARBON DIOXIDE 18.2 MMOL/L (24-32); TOTAL PROTEIN 8.8 G/DL (6.4-8.2); eCRCL 61 ML/MIN; eGFR 58 ML/MIN
[2023-06-20 20:58] LABS: GLUCOSE 480 MG/DL (70-104)
[2023-06-20 21:35] LABS: BILIRUBIN,URINE NEGATIVE (Neg); COLOR,URINE YELLOW (Yellow); GLUCOSE, URINE >=1000 mg/dl (Neg); KETONES,URINE 15 mg/dl (Neg); LEUKOCYTE ESTERASE ,URINE SMALL (Neg); NITRITES, URINE POSITIVE (Neg); OCCULT BLOOD,URINE MODERATE (Neg); PROTEIN,URINE 30 mg/dl (Neg); UROBILINOGEN,URINE 0.2 E.U/dL (0.2-1.0)
[2023-06-20 21:37] LABS: CLARITY,URINE CLOUDY (Clear); UA COLLECTION TYPE VOIDED
[2023-06-20 21:43] LABS: BACTERIA,URINE 2+ /HPF (Neg); MUCUS STRANDS FEW /LPF (Neg); RBC,URINE TNTC /HPF (0-2); SQUAMOUS EPITHELIAL CELL,UR FEW /LPF (FEW); WBC CLUMPS,URINE FEW /HPF (NEGATIVE); WBC,URINE TNTC /HPF (0-4)
[2023-06-20] MEDS: normal saline 1000ML IV soln IVB STA (22:25)
[2023-06-20] MEDS: ondansetron/PF 4mg/2ml inj IV ONE (22:28)
[2023-06-20] MEDS: acetaminophen 1,000mg/100ml IV 100 ML IV STA (22:31)
[2023-06-20] MEDS: normal saline 1000ml 1,000 ML IV ONE (23:26)
[2023-06-21] MEDS ORDERED: HYDROcodone/acetaminophen 10/325mg tab PO PRN (00:45)
[2023-06-21] MEDS ORDERED: DEXTROSE 15 GM of carb/4 tabs (each vial/BOTTLE has 4 tablets) PO PRN ×2 (00:45)
[2023-06-21] MEDS ORDERED: mag hydrox/Alum hydrox/simeth 30ml oral suspension PO PRN (00:45)
[2023-06-21] MEDS ORDERED: INSULIN LISPRO 100 UNIT/ML INSULN.PEN MULTI-DOSE SQ SCH (00:45)
[2023-06-21] MEDS ORDERED: dextrose 50%-water 50ml dispensing syringe IV PRN ×2 (00:45)
[2023-06-21] MEDS ORDERED: acetaminophen 325mg tablet PO PRN (00:45)
[2023-06-21] MEDS ORDERED: glucagon, human recombinant 1mg kit SUBCUT PRN (00:45)
[2023-06-21] MEDS ORDERED: ondansetron/PF 4mg/2ml inj IV PRN (00:45)
[2023-06-21] MEDS ORDERED: HYDROcodone/acetaminophen 5mg/325mg tablet PO PRN (00:45)
[2023-06-21] MEDS: MESSAGE TO PHARMACY PO ONE (01:33)
[2023-06-21] MEDS: normal saline 1000ml 1,000 ML IV SCH (01:50)
[2023-06-21] MEDS: MEROPENEM 1GM/NS 100ML IVPB 100 ML IV SCH (01:51)
[2023-06-21] MEDS: acetaminophen 325mg tablet PO PRN (05:14)
[2023-06-21] MEDS: CefTRIAXone/D5W-Rocephin 1gm 50 ML IV SCH (07:53)
[2023-06-21] MEDS: docusate sod 100mg capsule PO SCH (08:00)
[2023-06-21 10:08] LABS: BASOPHILS % (AUTO) 0.4 % (0-1); EOSINOPHILS % (AUTO) 0.4 % (0-6); HEMATOCRIT 42.1 % (35.0-45.0); HEMOGLOBIN 14.2 g/dl (12.0-16.0); LYMPHOCYTES # (AUTO) 1.6 X10'3 (1.1-4.8); LYMPHOCYTES % (AUTO) 14.7 % (21-51); MEAN CORPUSCULAR HEMOGLOBIN 28.9 PG (27.0-31.0); MEAN CORPUSCULAR HGB CONC 33.7 g/dL (33.0-36.5); MEAN CORPUSCULAR VOLUME 85.7 FL (78-98); MEAN PLATELET VOLUME 8.7 FL (7.4-10.4); MONOCYTES # (AUTO) 0.8 X10'3 (0-0.9); MONOCYTES % (AUTO) 7.8 % (2-12); NEUTROPHILS # (AUTO) 8.2 X10'3 (1.8-7.7); NEUTROPHILS % (AUTO) 76.7 % (42-75); PLATELET COUNT 167 X10'3 (140-440); RED BLOOD COUNT 4.91 X10'6 (4.20-5.60); RED CELL DISTRIBUTION WIDTH 14.1 % (11.5-14.5); WHITE BLOOD COUNT 10.6 X10'3 (4.5-11.0)
[2023-06-21 10:20] LABS: ALBUMIN 2.6 G/DL (3.4-5.0); ALBUMIN/GLOBULIN RATIO 0.7 (1.1-1.5); ALKALINE PHOSPHATASE 245 IU/L (46-116); ANION GAP 12 (8-16); ASPARTATE AMINO TRANSFERASE 48 U/L (10-37); BILIRUBIN,TOTAL 0.8 MG/DL (0.1-1.0); CALCIUM 8.1 MG/DL (8.5-10.1); CHLORIDE 96 MMOL/L (99-107); POTASSIUM 4.4 MMOL/L (3.5-5.1); SODIUM 131 MMOL/L (135-145); TOTAL CARBON DIOXIDE 22.9 MMOL/L (24-32); TOTAL PROTEIN 6.6 G/DL (6.4-8.2)
[2023-06-21 10:22] LABS: ALANINE AMINOTRANSFERASE 63 U/L (12-78); BLOOD UREA NITROGEN 20 MG/DL (7-18); CREATININE 1.05 MG/DL (0.40-0.90); eCRCL 57 ML/MIN; eGFR 53 ML/MIN
[2023-06-21 10:24] LABS: GLUCOSE 474 MG/DL (70-104)
[2023-06-21] MEDS: insulin Lispro (HumaLOG) vial - multi-dose SQ SCH (10:41)
[2023-06-21 13:30] VITALS: BP 128/75; PULSE 98; RESP 16; TEMP 98.4; O2SAT 100
[2023-06-21 13:55] VITALS: RESP 16; O2SAT 100
[2023-06-21 18:00] VITALS: BP 106/58; PULSE 89; RESP 24; TEMP 98.4; O2SAT 96
[2023-06-21 20:40] VITALS: RESP 24; O2SAT 96
[2023-06-21 22:00] VITALS: BP 131/57; PULSE 99; RESP 24; TEMP 99.5; O2SAT 95
[2023-06-21] MEDS: insulin glargine (Lantus) pen - multi-dose SQ SCH (23:51)
[2023-06-22] VITALS (7 sets, daily range): BP systolic 129–160; BP diastolic 70–80; PULSE 85–95; RESP 16–24; TEMP 98.1–99.3; O2SAT 95–98
[2023-06-22 06:21] LABS: BASOPHILS % (AUTO) 0.5 % (0-1); EOSINOPHILS # (AUTO) 0.1 X10'3 (0-0.9); EOSINOPHILS % (AUTO) 1.8 % (0-6); HEMATOCRIT 40.1 % (35.0-45.0); HEMOGLOBIN 13.3 g/dl (12.0-16.0); LYMPHOCYTES # (AUTO) 2.3 X10'3 (1.1-4.8); LYMPHOCYTES % (AUTO) 29.8 % (21-51); MEAN CORPUSCULAR HEMOGLOBIN 28.9 PG (27.0-31.0); MEAN CORPUSCULAR HGB CONC 33.2 g/dL (33.0-36.5); MEAN PLATELET VOLUME 8.9 FL (7.4-10.4); MONOCYTES # (AUTO) 0.6 X10'3 (0-0.9); MONOCYTES % (AUTO) 7.9 % (2-12); NEUTROPHILS # (AUTO) 4.6 X10'3 (1.8-7.7); PLATELET COUNT 132 X10'3 (140-440); RED BLOOD COUNT 4.61 X10'6 (4.20-5.60); RED CELL DISTRIBUTION WIDTH 13.9 % (11.5-14.5); WHITE BLOOD COUNT 7.7 X10'3 (4.5-11.0)
[2023-06-22 06:58] LABS: ALBUMIN 2.4 G/DL (3.4-5.0); ANION GAP 8 (8-16); BLOOD UREA NITROGEN 14 MG/DL (7-18); BUN/CREATININE RATIO 22.2 (10.0-20.0); CALCIUM 8.1 MG/DL (8.5-10.1); CHLORIDE 102 MMOL/L (99-107); CREATININE 0.63 MG/DL (0.40-0.90); GLUCOSE 285 MG/DL (70-104); SODIUM 132 MMOL/L (135-145); TOTAL CARBON DIOXIDE 21.7 MMOL/L (24-32); eCRCL 95 ML/MIN; eGFR > 90 ML/MIN
[2023-06-22] MEDS: polyethylene glycol 3350 17gm powd pack PO SCH (11:45)
[2023-06-22] MEDS: pantoprazole 40 MG vial IV SCH (11:46)
[2023-06-22] MEDS: amLODIPine 5mg tablet PO SCH (19:28)
[2023-06-22] MEDS: ipratropium 0.5 MG/2.5ML nebule NEB SCH (20:49)
[2023-06-22] MEDS ORDERED: albuterol 2.5 MG/3 ML nebule NEB PRN (23:20)
[2023-06-23 06:09] LABS: BASOPHILS % (AUTO) 0.6 % (0-1); EOSINOPHILS # (AUTO) 0.2 X10'3 (0-0.9); EOSINOPHILS % (AUTO) 2.3 % (0-6); HEMATOCRIT 39.8 % (35.0-45.0); HEMOGLOBIN 13.5 g/dl (12.0-16.0); LYMPHOCYTES # (AUTO) 1.8 X10'3 (1.1-4.8); LYMPHOCYTES % (AUTO) 26.2 % (21-51); MEAN CORPUSCULAR HGB CONC 33.8 g/dL (33.0-36.5); MEAN CORPUSCULAR VOLUME 85.8 FL (78-98); MEAN PLATELET VOLUME 8.8 FL (7.4-10.4); MONOCYTES # (AUTO) 0.6 X10'3 (0-0.9); MONOCYTES % (AUTO) 8.9 % (2-12); NEUTROPHILS # (AUTO) 4.3 X10'3 (1.8-7.7); PLATELET COUNT 153 X10'3 (140-440); RED BLOOD COUNT 4.64 X10'6 (4.20-5.60)
[2023-06-23 06:14] LABS: ALBUMIN 2.3 G/DL (3.4-5.0); ANION GAP 6 (8-16); BLOOD UREA NITROGEN 11 MG/DL (7-18); BUN/CREATININE RATIO 17.2 (10.0-20.0); CHLORIDE 101 MMOL/L (99-107); CREATININE 0.64 MG/DL (0.40-0.90); GLUCOSE 250 MG/DL (70-104); SODIUM 130 MMOL/L (135-145); TOTAL CARBON DIOXIDE 23.3 MMOL/L (24-32); eCRCL 93 ML/MIN; eGFR > 90 ML/MIN
[2023-06-23 06:27] LABS: POTASSIUM 3.9 MMOL/L (3.5-5.1)
[2023-06-23 07:07] VITALS: BP 158/90; PULSE 95; RESP 14; TEMP 99.1; O2SAT 94
[2023-06-23 07:45] VITALS: RESP 14; O2SAT 94
[2023-06-23] MEDS: fluticasone nasal spray 16GM bottle NS SCH (08:03)
[2023-06-23] MEDS: losartan 50mg tablet PO SCH (08:04)
[2023-06-23] MEDS: magnesium hydroxide 30ml (MOM) UD suspension PO PRN (08:15)
[2023-06-23 08:43] VITALS: RESP 14; O2SAT 94
[2023-06-23 11:15] VITALS: BP 167/87; PULSE 83; RESP 18; TEMP 99; O2SAT 93
[2023-06-23] MEDS ORDERED: ASPI81TA52 PO (12:27)
[2023-06-23] MEDS ORDERED: PANT40TA54 PO (12:27)
[2023-06-23] MEDS ORDERED: LACT1CAP60 PO (12:27)
[2023-06-23] MEDS ORDERED: CEFD300C3 PO (12:27)
[2023-06-23] MEDS ORDERED: LOSA100T58 PO (12:27)
[2023-06-23] MEDS ORDERED: INSU100V9 SQ (12:27)
[2023-06-23] MEDS ORDERED: METF-436 PO (12:27)
[2023-06-23] MEDS ORDERED: AMLO5TAB4 PO (12:29)
== END 2023-06-23 14:37 | disposition home health service (06) | DRG 720 ==
LOC: ER 19:53 → ED HOLD 06-21 00:47 → SUR 3N 06-21 13:38
PROVIDERS: ADMIT Internal Medicine; ATTEND Family Medicine
DX: A41.9 Sepsis, unspecified organism (principal); N17.0 Acute kidney failure with tubular necrosis; I50.9 Heart failure, unspecified; I11.0 Hypertensive heart disease with heart failure; N12 Tubulo-interstitial nephritis, not specified as acute or chronic; G89.29 Other chronic pain; I25.10 Atherosclerotic heart disease of native coronary artery without angina pectoris; E11.65 Type 2 diabetes mellitus with hyperglycemia; J44.9 Chronic obstructive pulmonary disease, unspecified; I16.0 Hypertensive urgency; M54.9 Dorsalgia, unspecified; Z88.0 Allergy status to penicillin; Z88.1 Allergy status to other antibiotic agents; Z88.5 Allergy status to narcotic agent; Z91.018 Allergy to other foods; I25.2 Old myocardial infarction; Z79.82 Long term (current) use of aspirin; Z79.899 Other long term (current) drug therapy; Z79.4 Long term (current) use of insulin; Z79.84 Long term (current) use of oral hypoglycemic drugs; Z95.5 Presence of coronary angioplasty implant and graft; Z86.73 Personal history of transient ischemic attack (TIA), and cerebral infarction without residual deficits
CPT/HCPCS: 36415; 71045; 74176; 80048; 80053; 81001; 82948; 83036; 83605; 84145; 85025; 86704; 86705; 87040; 87077; 87081; 87088; 87186; 87340; 93005; 94760; 96374; 96375; 99285; C9113; G0378; J0131; J0696; J1815; J2185; J2405; J7030

== ENCOUNTER 2023-09-18 09:36 | Outpatient (CLI) | payer MEDICAID ==
[~2023-09-18 09:36] MED LIST changes: -AMLO5TAB16 PO; +AMLO5TAB4 PO; -ASPI-845 PO; +CEFD300C3 PO; -CEPH-585 PO; +INSU100V46 SQ; +LACT1CAP60 PO; +PANT40TA54 PO
== END 2023-09-18 23:59 | disposition home or self-care (01) ==
LOC: RAD 09:36
PROVIDERS: ATTEND Student in an Organized Health Care Education/Training Program
DX: D25.9 Leiomyoma of uterus, unspecified (principal); N95.0 Postmenopausal bleeding; D39.0 Neoplasm of uncertain behavior of uterus
CPT/HCPCS: 76830; 76856; 93976

== ENCOUNTER 2023-10-01 14:44 | Outpatient (CLI) | payer MEDICAID | END 2023-10-01 23:59 | disposition home or self-care (01) | LOC: RAD 14:44 | PROVIDERS: ATTEND Student in an Organized Health Care Education/Training Program | DX: Z18.10 Retained metal fragments, unspecified (principal) | CPT/HCPCS: 73502 ==

== ENCOUNTER → 2024-07-19 | Emergency (ER) | payer MEDICAID, OTHER ==
[~2024-07-19] VITALS: Ht 167.6 cm; Wt 92.8 kg
[2024-07-19 20:07] VITALS: TEMP 98.6
--- NOTE | 2024-07-19 20:22 | ELECTROCARDIOGRAPH REPORT ---
[facility] Test Date: 2024-07-19 Test Time: 20:07:21 Pat Name: KEDAR DIAZ Department: EMERGENCY ROOM Room: Gender: F Battery Tester: PM : 1960 Requested By: LISET DÍAZ Order Number: [id number] Reading MD: Dr. Rey Larios Measurements Intervals [place] Rate: 113 P: 66 ID: [id number] QRS: -53 QRSD: 82 T: 79 QT: 329 QTc: 451 Interpretive Statements Sinus tachycardia Inferior infarct, old Anterior infarct, old Electronically Signed On 07-20-2024 15:46:[address] Rey Larios Please click the below link to view image of tracing.
[2024-07-19 20:25] LABS: BASOPHILS # (AUTO) 0.1 X10'3 (0-0.2); BASOPHILS % (AUTO) 0.7 % (0-1); EOSINOPHILS # (AUTO) 0.2 X10'3 (0-0.9); EOSINOPHILS % (AUTO) 2.2 % (0-6); HEMOGLOBIN 13.3 g/dl (12.0-16.0); LYMPHOCYTES % (AUTO) 28.1 % (21-51); MEAN CORPUSCULAR HEMOGLOBIN 28.9 PG (27.0-31.0); MEAN CORPUSCULAR HGB CONC 33.3 g/dL (33.0-36.5); MEAN CORPUSCULAR VOLUME 86.8 FL (78-98); MEAN PLATELET VOLUME 9.2 FL (7.4-10.4); MONOCYTES # (AUTO) 0.6 X10'3 (0-0.9); MONOCYTES % (AUTO) 8.6 % (2-12); NEUTROPHILS # (AUTO) 4.4 X10'3 (1.8-7.7); NEUTROPHILS % (AUTO) 60.4 % (42-75); PLATELET COUNT 172 X10'3 (140-440); RED BLOOD COUNT 4.61 X10'6 (4.20-5.60); RED CELL DISTRIBUTION WIDTH 13.6 % (11.5-14.5); WHITE BLOOD COUNT 7.3 X10'3 (4.5-11.0)
[2024-07-19 20:41] LABS: ALANINE AMINOTRANSFERASE 38 U/L (12-78); ALBUMIN 3.7 G/DL (3.4-5.0); ALKALINE PHOSPHATASE 178 IU/L (46-116); ANION GAP 13 (8-16); ASPARTATE AMINO TRANSFERASE 31 U/L (10-37); BILIRUBIN,TOTAL 0.6 MG/DL (0.1-1.0); BLOOD UREA NITROGEN 27 MG/DL (7-18); BUN/CREATININE RATIO 19.6 (10.0-20.0); CALCIUM 8.8 MG/DL (8.5-10.1); CHLORIDE 105 MMOL/L (99-107); CREATININE 1.38 MG/DL (0.40-0.90); POTASSIUM 4.1 MMOL/L (3.5-5.1); PRO BRAIN NATRIURETIC PEPTIDE 49 PG/ML (0-125); SODIUM 139 MMOL/L (135-145); TOTAL CARBON DIOXIDE 21.1 MMOL/L (24-32); TOTAL PROTEIN 7.3 G/DL (6.4-8.2); eCRCL 40 ML/MIN; eGFR 39 ML/MIN
[2024-07-19 20:44] LABS: GLUCOSE 494 MG/DL (70-104)
--- NOTE | 2024-07-19 21:32 | RADIOLOGY REPORT ---
Clinical History CP Comparison None Technique: A single AP/PA chest radiograph was provided for review. Without Contrast KEDAR DIAZ, [id number] FINDINGS: Lungs: expanded lungs without pneumothorax, focal consolidation, pleural effusion or mass. Linear de nsities at the lung bases may represent atelectasis/scarring vs infiltrates. Heart: Normal in size and configuration. Mediastinum: Within normal limits. Vasculature: Within normal limits. Tubes/lines: None. Osseous structures: No evidence for acute fracture. IMPRESSION: Unremarkable mediastinum. Normal pulmonary vasculature. Linear densities at the lung bases may represent atelectasis/scarring vs infiltrates. This report was electronically signed by Joe Sanford MD on 07/19/2024 9:28:50 PM.
[2024-07-19 22:01] VITALS: BP 152/78; PULSE 108; RESP 16; O2SAT 98
--- NOTE | 2024-07-19 22:56 | Physician Documentation ---
History of Present Illness ~ General Chief Complaint: Multiple Medical Complaints Stated Complaint: SOB Time Seen by MD: 21:46 Primary Medical Doctor: WILNER ARGUELLO Mode of Arrival: POV History of Present Illness Initial Comments This is a 70-year-old female who presents with multiple medical complaints, patient reports sharp pain traveling around her body intermittently onset earlier today, patient reports pain currently in her left lower back. Patient reports that the sharp pain had traveled around her body in her abdomen, chest, arms, and back. Patient is somewhat agitated and unable to sit still moving erratically. During history taking and physical exam patient insists on ending examined and leaving. Medication Reconciliation Allergies: Coded Allergies: morphine (Verified Allergy, Intermediate, HIVES, 05/17/23) Erythromycin Lactobionate (Verified Allergy, Unknown, 05/17/23) Penicillins (Verified Allergy, Unknown, 05/17/23) codeine (Verified Allergy, Unknown, 05/17/23) corn (Verified Allergy, Unknown, 05/17/23) hydromorphone HCl (Verified Allergy, Unknown, 05/17/23) mold (Verified Allergy, Unknown, 03/29/21) oak (Verified Allergy, Unknown, 03/29/21) peanut (Verified Allergy, Unknown, 03/29/21) wheat (Verified Allergy, Unknown, 03/29/21) Uncoded Allergies: THC (Allergy, Severe, DIFFICULTY BREATHING., 04/29/13) MAPLE (Allergy, Unknown, 01/22/14) Scheduled Amlodipine Besylate (Norvasc), 2 TAB PO DAILY Beclomethasone Dipropionate (Qvar Redihaler), 2 PUFFS INH Q12H, (Reported) Cefdinir (Cefdinir), 1 CAP PO Q12H Fluticasone Propionate (Flonase), 2 SPRAYS IH DAILY, (Reported) Insulin Aspart (Insulin Aspart), 10 UNIT SQ TID Insulin Glargine,Hum.rec.anlog (Lantus), 40 UNIT SQ HS Lactobac Cmb #3/Fos/Pantethine (Probiotic & Acidophilus Cap), 1 CAP PO DAILY Loratadine (Loratadine), 1 TAB PO DAILY, (Reported) Losartan Potassium (Losartan Potassium), 1 TAB PO DAILY Metformin Hcl (Metformin Hcl), 1 TAB PO BID Ondansetron Hcl (Zofran), 1 TAB PO Q8H Orphenadrine Citrate (Norflex), 1 TAB PO Q12H PRN Pantoprazole Sodium (Pantoprazole Sodium), 40 MG PO DAILY Tiotropium Auxier (Spiriva Respimat), 2 PUFFS INH DAILY Scheduled PRN Albuterol Sulfate (Albuterol Sulfate), 2 INH PO Q4H PRN for SOB or wheezing, (Reported) Diphenhydramine HCl (Benadryl Allergy), 5 ML PO Q6H PRN PRN for allergy symptoms, (Reported) Epinephrine (Epinephrine), 0.3 MG IM ONCE PRN for allergies, (Reported) Ibuprofen (Ibuprofen), 1 TAB PO Q8H PRN for pain Nitroglycerin SL* (Nitrostat SL*), 1 TAB SL DAILY PRN for Chest pain Q5min PRNx3-call MD, (Reported) Past Medical History Past Medical History: CVA/TIA/Stroke, Coronary Artery Disease, Congestive Heart Failure, Hypertension, Myocardial Infarction, Asthma, COPD, Diabetes, Chronic Pain, Chronic Back Pain, *PSYCH* Past Surgical History: angioplasty, orthopedic surgeries Alcohol Use: None Drug Use: marijuana, methamphetamine Lives with: Spouse Lives In: Home Occupation: disabled Review of Systems ROS Left lower lumbar back pain and intermittent nonradiating chest pain as stated above in the HPI, otherwise all systems are reviewed and negative. Physical Exam Physical Exam Vital Signs: Temperature: 98.6, Heart Rate: 108, Respiratory Rate: 16, BP: 152/78, Pulse Oximetry: 98, Weight: 92.820 Oxygen Flow Rate: 0 Physical Exam VITALS: Reviewed and as above. GENERAL: Alert, nontoxic appearing, no apparent distress. RESPIRATORY: No increased work of breathing, no respiratory distress, speaking in full clear sentences BACK: No CVA tenderness, tenderness to palpation to left lower lumbar back without central tenderness, no ecchymosis, no erythema PSYCH: Rapid speech, agitated mood and affect Progress Results/Orders Results/Orders Vital Signs 07/19/24 07/19/24 07/19/24 07/19/24 20:07 21:00 22:01 22:01 Temp 98.6 Pulse 116 106 108 Resp 19 19 16 17 B/P (MAP) 124/77 152/78 (102) Pulse Ox 98 96 98 O2 Flow Rate 0 Laboratory Tests Test 07/19/24 20:12 07/19/24 22:28 White Blood Count 7.3 Red Blood Count 4.61 Hemoglobin 13.3 Hematocrit 40.0 Mean Corpuscular Volume 86.8 Mean Corpuscular Hemoglobin 28.9 Mean Corpuscular Hemoglobin Concent 33.3 Red Cell Distribution Width 13.6 Platelet Count 172 Mean Platelet Volume 9.2 Neutrophils (%) (Auto) 60.4 Lymphocytes (%) (Auto) 28.1 Monocytes (%) (Auto) 8.6 Eosinophils (%) (Auto) 2.2 Basophils (%) (Auto) 0.7 Neutrophils # (Auto) 4.4 Lymphocytes # (Auto) 2.0 Monocytes # (Auto) 0.6 Eosinophils # (Auto) 0.2 Basophils # (Auto) 0.1 CBC Comment Sodium Level 139 Potassium Level 4.1 Chloride Level 105 Carbon Dioxide Level 21.1 L Anion Gap 13 Blood Urea Nitrogen 27 H Creatinine 1.38 H Estimated GFR/1.73 m2 39 BUN/Creatinine Ratio 19.6 Glucose Level 494 *H Calcium Level 8.8 Total Bilirubin 0.6 Aspartate Amino Transf (AST/SGOT) 31 Alanine Aminotransferase (ALT/SGPT) 38 Alkaline Phosphatase 178 H Troponin I High Sensitivity 15 13 Pro-B-Type Natriuretic Peptide 49 Total Protein 7.3 Albumin 3.7 Globulin 3.6 Albumin/Globulin Ratio 1.0 L Chemistry Comments Troponin I High Sens Percent Delta 13 Troponin I Hi Sens Absolute Change -2 EKG/XRAY/CT/US/VASC/MRI EKG : Additional Comment EKG at 2006 interpreted by myself as: Sinus tachycardia at a rate of 113, left axis deviation, no ST segment depression or elevation Chest X-Ray : Additional Comments Clinical History CP Comparison None Technique: A single AP/PA chest radiograph was provided for review. Without Contrast KEDAR DIAZ, [id number] FINDINGS: Lungs: expanded lungs without pneumothorax, focal consolidation, pleural effusion or mass. Linear densities at the lung bases may represent atelectasis/scarring vs infiltrates. Heart: Normal in size and configuration. Mediastinum: Within normal limits. Vasculature: Within normal limits. Tubes/lines: None. Osseous structures: No evidence for acute fracture. IMPRESSION: Unremarkable mediastinum. Normal pulmonary vasculature. Linear densities at the lung bases may represent atelectasis/scarring vs infiltrates. This report was electronically signed by Benja Richmond MD on 07/19/2024 9:28:50 PM. Electronically Signed by:BENJA RICHMOND MD Date & Time: 07/19/242131 Dictated by: BENJA RICHMOND MD Dictation date and time: 07/19/242131 I have reviewed and agree with the radiology report. I have reviewed and interpreted the imaging as: No focal consolidation or pneumothorax observed Medical Decision Making Findings During history and physical exam patient was somewhat agitated and unable sit still moving around erratically with rapid speech, patient requested to end exam and wanted to leave, patient was advised that ending exam early and leaving prior to finishing history and physical would be considered leaving against medical advice, patient was advised to stay to have workup finished though insisted on having IV removed and leaving the hospital. Patient's labs significant for elevated blood glucose however there was no evidence of DKA as there was no gap, further previous visits demonstrated patient has had similar high blood glucose readings in the past, I suspect patient has poorly controlled diabetes. As patient would not stay for further workup I can not fully rule out more serious causes of her pain however it was reassuring that patient's labs did not demonstrate evidence of significant metabolic derangement or evidence of infection. Additionally it was reassuring patient was troponin was not elevated. Differential Diagnosis ID, PE, spinal epidural abscess, pyelonephritis, urolithiasis, musculoskeletal pain, sciatica, radiculopathy, methamphetamine abuse, substance abuse, Departure Disposition: 07 LEFT AGAINST MEDICAL ADVICE Impression: Primary Impression: Hyperglycemia Condition: Guarded Additional Instructions: You have left against medical advice prior to conclusion of physical exam and our history taking, so we are unable to provide you a diagnosis, if you change your mind about being seen please return to the emergency department. Referrals: NO PRIMARY CARE PROVIDER (PCP) Education Educated: Patient Educated regarding: diagnosis, need for follow up Signature Scribe Signature: No scribe Attestation: The note accurately reflects work and decisions made by me.HUGO Abernathy 07/20/24 01:13 TOÑO MORRIS July 19, 2024 22:56
== END | disposition left against medical advice (07) ==
LOC: ER 20:02
DX: E11.65 Type 2 diabetes mellitus with hyperglycemia (principal); I25.10 Atherosclerotic heart disease of native coronary artery without angina pectoris; I11.0 Hypertensive heart disease with heart failure; I50.9 Heart failure, unspecified; I25.2 Old myocardial infarction; G89.29 Other chronic pain; M54.9 Dorsalgia, unspecified; J44.9 Chronic obstructive pulmonary disease, unspecified; J45.909 Unspecified asthma, uncomplicated; F12.90 Cannabis use, unspecified, uncomplicated; F15.90 Other stimulant use, unspecified, uncomplicated; Z86.73 Personal history of transient ischemic attack (TIA), and cerebral infarction without residual deficits; Z88.0 Allergy status to penicillin; Z88.5 Allergy status to narcotic agent; Z88.1 Allergy status to other antibiotic agents; Z91.010 Allergy to peanuts; Z91.018 Allergy to other foods; Z79.899 Other long term (current) drug therapy; Z79.4 Long term (current) use of insulin; Z98.890 Other specified postprocedural states
CPT/HCPCS: 36415; 71045; 80053; 83880; 84484; 85025; 93005; 99285